=== PATIENT | male | born 1940 | race Caucasian/White ===

== ENCOUNTER 2022-04-16 09:52 | Outpatient (CLI) | payer MEDICARE, BC, SELFPAY ==
--- NOTE | 2022-04-16 11:00 | CRLHL7_ITS ---
For Patients: As a result of the Century Cures Act, medical imaging exams and procedure reports are released immediately into your electronic medical record. You may view this report before your referring provider. If you have questions, please contact your health care provider. Indication: PRIMARY MALIGNANT NEOPLASM OF THE PROSTATE Technique: Postcontrast CT abdomen and pelvis. Oral water. 98 cc Isovue 370 intravenous contrast. Please note that all CT scans at this facility use dose modulation, iterative reconstruction, and/or weight-based dosing when appropriate to reduce radiation dose to as low as reasonably achievable. Comparison: None Findings: There is a nodule associated with the minor fissure measuring 7 millimeters, considered benign. Fibrotic changes are present within both lung bases including thickening of the interlobular septa in both lower lobes in a peripheral distribution extending to the lingula. No pleural effusion. No free intraperitoneal air. The liver is normal without suspicious lesion. Normal gallbladder. No calcified gallstones. No biliary obstruction. The pancreas is normal. Normal spleen. Normal adrenal glands. No suspicious renal lesion. There is a simple cyst upper pole right kidney measuring 3.5 cm. A lobular cystic lesion arises from the upper pole of the left kidney measuring 4.4 cm. Thin septations are present which may be calcified. No hydronephrosis. Dense vascular calcifications. Normal adrenal glands. No retroperitoneal adenopathy. No mesenteric, pelvic or inguinal adenopathy. The prostate is heterogeneous. Normal bladder. No bowel obstruction or free fluid. Extensive chronic sigmoid diverticulosis. Numerous diverticula noted throughout the colon particularly the sigmoid colon with associated sigmoid colon wall thickening. Postop changes of right inguinal hernia repair. No fluid collection or abscess. Degenerative facet arthropathy lower lumbar spine. Grade 1 degenerative spondylolisthesis of L5 on S1. Degenerative joint disease of both hips. Impression: No evidence of metastatic disease. 4.4 cm Bosniak 2 cyst upper pole left kidney. Bosniak 1 cyst upper pole right kidney measuring 3.5 cm. 7 millimeter benign pleural base nodule on the right. Bibasilar fibrosis, left greater than right. Please note that all CT scans at this facility use dose modulation, iterative reconstruction, and/or weight-based dosing when appropriate to reduce radiation dose to as low as reasonably achievable. Dictated by Arnel Noyola MD @ 04/16/2022 12:20:21 PM (Electronically Signed)
== END 2022-04-16 09:53 | disposition home or self-care (01) ==
LOC: CT 10:01
PROVIDERS: PCP Family Medicine; Visit Provider Nurse Practitioner
DX: C61 Malignant neoplasm of prostate (principal); N28.1 Cyst of kidney, acquired; R91.1 Solitary pulmonary nodule
CPT/HCPCS: 74177; Q9967

== ENCOUNTER 2022-05-22 13:45 | Outpatient (CLI) | payer MEDICARE, BC, SELFPAY | END 2022-05-22 13:46 | disposition home or self-care (01) | LOC: MRI 13:46 | PROVIDERS: PCP Family Medicine; Visit Provider Internal Medicine | DX: C61 Malignant neoplasm of prostate (principal) | CPT/HCPCS: 72195 ==

== ENCOUNTER 2022-11-06 13:15 | Outpatient (RCR) | payer MEDICARE, BC, SELFPAY ==
--- NOTE | 2022-05-08 12:18 | ONC.NURNOTE ---
DX: Prostate cancer
--- NOTE | 2022-05-09 10:52 | URNOTE ---
Request received for authorization for Leuprolide ([id number]). Prior Authorization is not required as services are based on medical necessity and follow Medicare guidelines.
[2022-05-10 13:02] VITALS: BP 146/74; PULSE 83; RESP 16; TEMP 36.4; O2SAT 98
[2022-05-10] MEDS: LEUPROLIDE ACETATE 22.5 MG (SQ) SYRINGE SUBCUT (13:52)
[2022-08-03 11:30] VITALS: BP 146/81; PULSE 72; RESP 16; TEMP 36.1; O2SAT 97
[2022-08-03] MEDS: LEUPROLIDE ACETATE 22.5 MG (SQ) SYRINGE SUBCUT (11:48)
[2022-08-03 12:36] LABS: PSA Diagnostic* < 0.06 ng/mL (0.10-4.00)
[2022-08-04 13:42] LABS: Testosterone, Adult Male <3 ng/dL (300-720)
[2022-11-06] MEDS: LEUPROLIDE ACETATE 22.5 MG (SQ) SYRINGE SUBCUT (13:31)
== END 2022-11-06 23:59 | disposition home or self-care (01) ==
LOC: CCIC 13:15
PROVIDERS: PCP Family Medicine; Referring Provider Family Medicine; Visit Provider Internal Medicine
DX: C61 Malignant neoplasm of prostate (principal)
CPT/HCPCS: 36415; 84153; 84403; 96401; J9217

== ENCOUNTER 2023-01-09 15:30 | Outpatient (RCR) | payer MEDICARE, BC, SELFPAY ==
--- NOTE | 2022-10-10 18:29 | PT.OPEX ---
Please sign the attached physical therapy evaluation completed on 10/10/22. Thank you. PT [facility] PT [facility] Outpatient Eval Start: 10/05/22 15:57 Freq: Status: Active Protocol: Document 10/10/22 10:41 TLQ (Rec: 10/10/22 14:00 TLQ Laptop) E-signed By Alma Helms DPT Physical Therapy Outpatient Evaluation Insurance Information Recert Due Date 01/08/23 Insurance Name Medicare B,[employer] Medical Diagnosis Other bursitis of hip, left hip (M70.72) Treating Diagnosis Stiffness of left hip (M25.652 ) Muscle weakness (M62.81) Unsteady on feet (R26.81) Referring MD Lamberto Morales MD Subjective Subjective Nicholas presents to therapy today with not pain but pre- bursitis symptoms in his left hip. States his left hip is feeling stiff. These symptoms have been present for about a month. Symptoms make it difficult to walk, bending forward. Recently fell in his garage, had to call 911 to help get him up. Patient states EMT suggested he get a cane to help with walking, presents today ambulating with a quad-base cane, states his feels like his walking has improved. Denies having any additional falls in the past 6 months. Patient would like to be able to walk up to a mile every day. X-rays taken at [facility] on 09/19/22 with the following impression: minimal joint space narrowing over the inferior aspect of the femoral head with minimal osteophytic spurring. No obvious fracture or pathologic lesion. PMHx: depression, prostate cancer, arthritis, R TKA Pain Comments No pain Current Work Status Retired Preferred Name Nicholas Precautions Therapy Limitations/Systems Review Hearing Objective Other/Pertinent Objective Hip ROM: limited in IR on L Hip strength: flexion L 4-, R 4 extension L 4, R 4 abduction 4- B adduction 4 B internal rotation L 4, R 4 external rotation L 4, R 4 Knee strength: flexion L 4, R 4 extension L 4+, R 4+ TTP: L greater trochanter, L glute med/min Joint mobility: hypomobile on L 5xSTS: 14 seconds, use of 2 arms on chair TU seconds with use of quad cane Gait: shuffle gait, decreased stride on L, use of quad cane in L hand Special tests: JASPREET (+) for mobility restrictions on L LE distraction (+) response Functional Test Performed & Score 2 minute walk test not completed due to time constraints Assessment Assessment/Impression Patient is an 82 year old male who presents to physical therapy today with primary concerns of stiffness in his left hip. Presence of great trochanteric pain on left with palpation of greater trochanter and glute medius/ minimus. At this time patient does not have hip pain during activity. Stiffness observed in left hip with PROM and in JASPREET position, patient had a positive response to long-axis distraction of the left lower extremity. General muscle weakness present in bilateral hips with manual muscle testing. Patient demonstrating functional weakness while completing 5xSTS, unable to complete without use of upper extremities. Patient reports a recent fall and has since began using a quad base cane for ambulation, he presents to today's evaluation using the cane in his left hand. Observed to have decreased stance on his left lower extremity, shuffle gait when not using cane. Concerns regarding balance due to recent fall and time needed to complete Timed Up and Go. Suspect difficulty with endurance due to patient reports of fatiguing on walks with his , unable to assess 2 minute walk test today due to time constraints, will assess at upcoming visit . Based on examination findings, patient will benefit from skilled interventions to increase strength, balance, and endurance to meet his personal and physical therapy goals. Primary Functional Limitations muscle weakness, recent fall, unsteady gait, stiffness of left hip Plan of Care Rehabilitation Potential Good Physical Therapy Goals In 3-4 visits: - Patient will complete 5 transitional reps from sit<> stand without use of his upper extremities for increased functional lower extremity strength. - Patient will tolerate walking up to 1/4 mile with use of LRD to participate in physical activities outdoors with his . - Patient will adhere to HEP to continue progression of strength and conditioning. In 8-10 visits: - Patient will demonstrate ability to complete floor transfer in order to safely work in his garden. - Patient will complete TUG with use of LRD in <13.5 seconds to decrease risk of falling while navigating their home environments. - Patient will complete 5xSTS in <12 seconds for decreased energy expenditure during transitional movements. - Patient will tolerate walking up to 1 mile with use of LRD. Treatment Plan/Direct Interventions Gait Training,Ice/Cold/ Vasopneumatic,Joint Mobilization,Manual Therapy, Neuromuscular Re-ed,Self-Care/ Home Management,Therapeutic Activities,Therapeutic Exercises Frequency/Duration 1x/week for 8-10 weeks Patient Will Be Discharged From Therapy Completion of LTG(s),Skills Plateau,Independent w/HEP, Independently Progressing Evaluation Billing Untimed Code Treatment Minutes 25 Complexity Low Certification Information Initial Certification Date 10/10/22 Ending Certification Date 01/08/23 Provider Signature Shows Agreement With POC & Medical Necessity Physician Signature & Date Requested Please Sign/Date Here Physician Comment/Change : Physician NPI Number #
== END 2023-01-23 11:20 | disposition home or self-care (01) ==
PROVIDERS: PCP Family Medicine; Visit Provider Orthopaedic Surgery
DX: M70.72 Other bursitis of hip, left hip (principal); M25.652 Stiffness of left hip, not elsewhere classified; M62.81 Muscle weakness (generalized); R26.81 Unsteadiness on feet; Z51.89 Encounter for other specified aftercare
CPT/HCPCS: 97110; 97112; 97140; 97161; 97530

== ENCOUNTER 2023-01-27 14:05 | Outpatient (CLI) | payer MEDICARE, BC, SELFPAY | END 2023-01-27 14:06 | disposition home or self-care (01) | LOC: AMB 02-04 06:19 | PROVIDERS: PCP Family Medicine; Visit Provider Emergency Medicine Emergency Medical Services | DX: S09.90XA Unspecified injury of head, initial encounter (principal); W10.8XXA Fall (on) (from) other stairs and steps, initial encounter; Y92.009 Unspecified place in unspecified non-institutional (private) residence as the place of occurrence of the external cause | CPT/HCPCS: A0425; A0429 ==

== ENCOUNTER 2023-01-27 15:03 | Emergency (ER) | payer MEDICARE, BC, SELFPAY ==
[2023-01-27 15:07] VITALS: BP 182/76; PULSE 72; RESP 18; TEMP 36.2; O2SAT 98; BMI 29.1
--- NOTE | 2023-01-27 15:12 | ED_ITS ---
HPI - Fall General Time Seen by Provider: 15:12 Date Seen: 01/27/23 Chief Complaint: Fall/Minor Trauma Stated Complaint: Fall, head laceration Time Seen by Provider: 01/27/23 15:07 Source: patient, EMS and RN notes reviewed Mode of arrival: EMS Limitations: no limitations History of Present Illness HPI Narrative: Patient is an 82-year-old male brought in by EMS and accompanied by his after a fall at home. He was downstairs watching the [employer] game. They have occurred staircase going back up. He has fallen in the past before, has gait issues and possibly some orthostatic blood pressure changes per his . 9 years ago she reports a fall with a brain bleed requiring transfer to [place]. He is not any blood thinners. He denies any significant headache, no visual changes. He can feel some localized pain on the scalp where there is reportedly a laceration. EMS did bring him in in a cervical collar and have him in a turban to suppress bleeding. He admits that he had a little half glass of red wine will watching the [employer] game. He was going back up his curve stairs which he uses his cane in the left hand and then he hangs on the banister with his right hand. He unfortunately was carrying a plate up in his right hand and lost his balance going up the stairs, happened on the 1st step. He fell backwards and hit the top of his head on a bookcase. There was no loss of consciousness, denies any pain anywhere. He is not having pain in his neck, no pain in any of his extremities, no chest pain, no abdominal pain. Denies any difficulty breathing no palpitations or irregular heartbeat. His heard him fall in attended to him right away. complaint: fall Related Data Home Medications Medication Instructions Recorded Confirmed atorvastatin 20 mg tablet 20 mg PO DAILY 09/19/22 11/06/22 finasteride 5 mg tablet 5 mg PO QAM 09/19/22 11/06/22 lisinopril 20 mg tablet 20 mg PO DAILY 09/19/22 11/06/22 trospium 20 mg tablet 20 mg PO Q12H 09/19/22 11/06/22 losartan 50 mg tablet 50 mg PO DAILY 11/06/22 11/06/22 multivitamin 1 tab PO DAILY 11/06/22 11/06/22 sertraline 50 mg tablet 50 mg PO QAM 11/06/22 11/06/22 Allergies Allergy/AdvReac Type Severity Reaction Status Date / Time No Known Drug Allergies Allergy Verified 01/27/23 15:07 Review of Systems Status of ROS: Reports: 6 or more systems reviewed and unremarkable except as noted in History and below [facility] Surgical History 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) ?Z96.651 - Presence of right artificial knee joint (ICD-10) Social History Smoking Status: Never smoker How often do you have a drink containing alcohol: 4 or more times a week How many standard drinks containing alcohol do you have on a typical day: 1 or 2 How often do you have six or more drinks on one occasion: Never AUDIT-C Alcohol total score: 4 Non-prescribed substance use: denies use Exam Const: Vital Signs, click to edit/add: Vital Signs - 24 hr 01/27/23 15:07 01/27/23 15:31 01/27/23 15:46 Temperature 97.1 F L Pulse Rate [Pulse Oximeter] 72 69 Respiratory Rate 18 Blood Pressure [Ri ght Upper Arm] 182/76 H Pulse Oximetry 98 97 98 Oxygen Delivery Me thod Room Air Room Air Pleasant 82-year-old male with bandaging around his head, can see some red blood seeping into the bandages but the area is not growing while I am talking to him. He has a cervical collar on. He is alert, interactive, answering questions, appropriate, speech is normal. GCS is assessed in his 15/15. At this time this wound does not appear to be actively bleeding to the bandaging. Pupils are equal round, extraocular muscles intact, sclera clear. Face is atraumatic. No drainage from the ears or nares noted. C-collar was opened, he has no midline tenderness, no paraspinous tenderness, does not complain of any pain with gentle range of motion. There are no neck masses, no cervical adenopathy, no thyromegaly masses or nodules. Nontender over the clavicles and shoulders, lungs are clear with good aeration throughout. He is not tachypneic his speech is normal. CV regular rate and rhythm no murmur, normal S1 and S2. Abdomen soft nontender no rebound or guarding organomegaly. Pelvis is stable, no pain over hips or lower extremities. Arms without any focal deficit, full range of motion. No open wounds noted on his arms. The dressing was taken down on the top of his head, has a slightly jagged about 10 cm laceration on the right top of his occipital/parietal scalp. At this time there is no active bleeding. It does look like it is fully through the skin. Documenting provider has reviewed patient's vital signs: yes Course Course ED Course: Patient sustained a fall. He states he had just a small amount of alcohol and does not feel intoxicated at all. He is giving me a mechanism for gait imbalance with caring a plate going upstairs taking out 1 of his usual mechanisms with holding onto the railing. Will get basic lab work, monitor him on pulse oximetry. We will obtain head CT, cervical spine CT. Nursing staff will check on his tetanus status. Reevaluation(s) Time of Reevaluation #1: 15:38 Reevaluation #1: Wound was anesthetized locally with 10 mL of 1% lidocaine with epinephrine. No active bleeding at this time. Plan is for stapling of this wound, have ordered head CT and cervical spine CT. Will await this imaging to be done 1st before a stable, again no active bleeding at this time. Time of Reevaluation #2: 16:52 Reevaluation #2: Nursing staff did clean the wound. There was still blanching around the edges. I was able to close the laceration on his scalp using 15 roberto. He tolerated this well. Just along the posterior aspect of the wound, did feel 1 stable going in but otherwise there was good anesthesia. No active bleeding. We did review his last tetanus was 01/05/2011. He does agree to have this updated. Did review with his that I did look back in the records. He was transferred in June of 2014 after a fall with seizure, blood was noted in his left ear. She notes he was transferred to [place], does not remember if he actually had a skull fracture or not. He has not been maintained on anti seizure medicines from what they are telling me. We are awaiting the CT images to be read. He remains hemodynamically stable, likely will discharge to home if the images are negative for acute traumatic change. Time of Reevaluation #3: 17:16 Reevaluation #3: Reviewed with patient that there is no concerning findings on CT imaging of head or neck. The last staple on his scalp is oozing just a little bit, pressure certainly did slow it. He will need tetanus updated and will place pressure dressing back on scalp for overnight. Vital Signs Vital signs: Initial Vital Signs Temperature 97.1 F L 01/27/23 15:07 Temperature Source Temporal Artery Scan 01/27/23 15:07 Pulse Rate 72 01/27/23 15:07 Respiratory Rate 18 01/27/23 15:07 Blood Pressure 182/76 H 01/27/23 15:07 Blood Pressure Mean 111 H 01/27/23 15:07 Blood Pressure Position Sitting 01/27/23 15:07 Pulse Oximetry 98 01/27/23 15:07 Oxygen Delivery Method Room Air 01/27/23 15:07 Vital Signs Temperature 97.1 F L 01/27/23 15:07 Pulse Rate 72 01/27/23 15:07 Respiratory Rate 18 01/27/23 15:07 Blood Pressure 182/76 H 01/27/23 15:07 Pulse Oximetry 98 01/27/23 15:07 Oxygen Delivery Method Room Air 01/27/23 15:07 Temperature 97.1 F L 01/27/23 15:07 Pulse Rate 69 01/27/23 15:46 Respiratory Rate 18 01/27/23 15:07 Blood Pressure 182/76 H 01/27/23 15:07 Pulse Oximetry 98 01/27/23 15:46 Oxygen Delivery Method Room Air 01/27/23 15:46 MDM - Fall Lab Data Attestation: I reviewed the patient's lab results. Labs: Lab Results 01/27/23 Range/Units 15:32 WBC 6.17 (4.50-11.00) K/uL RBC 3.38 L (4.30-5.90) m/uL Hgb 11.3 L (13.5-17.5) gm/dL Hct 34.0 L (37.0-53.0) % MCV 101 H (80-100) fL MCH 33 (26-34) pg MCHC 33 (32-36) gm/dL RDW Coeff of Ramirez 13.8 (11.5-15.5) % Plt Count 165 (140-440) K/uL Neut % (Auto) 80.6 H (42.0-72.0) % Lymph % (Auto) 6.8 L (20-44) % Gallia % (Auto) 9.1 (0.0-11.0) % Eos % (Auto) 3.2 (0.0-7.0) % Baso % (Auto) 0.0 (0.0-3.0) % Neut # (Auto) 5.00 (1.7-7.0) K/uL Lymph # (Auto) 0.40 L (0.90-2.90) K/uL Gallia # (Auto) 0.60 (0.00-0.90) K/UL Eos # (Auto) 0.20 (0.00-0.50) K/uL Baso # (Auto) 0.00 (0.00-0.30) K/uL Abs Immat Gran (auto) 0.02 (0.00-0.30) K/uL Imm/Tot Granulo (auto) 0.3 % Sodium 138 (135-149) mmol/L Potassium 4.4 (3.6-5.1) mmol/L Chloride 102 (96-114) mmol/L Carbon Dioxide 30 (20-32) mmol/L Anion Gap 6 L (7-15) mEq/L BUN 21 (7-30) mg/dL Creatinine 0.8 (0.5-1.5) mg/dL Estimated Creat Clear 56.95 Estimated GFR 88 ml/min Glucose 102 (60-115) mg/dL Lactate 1.0 (0.5-1.9) mmol/L Calcium 9.6 (8.4-10.6) mg/dL Total Bilirubin 0.6 (0.1-1.5) mg/dL AST 29 (12-35) U/L ALT 20 (4-50) U/L Alkaline Phosphatase 69 (40-150) U/L Total Protein 7.1 (6.0-8.3) g/dL Albumin 3.9 (3.3-5.0) g/dL Ethyl Alcohol < 0.01 L (0.01-0.03) % Imaging Data CT scan - head: Attestation: I have reviewed the pertinent imaging results. Radiologist's impression: Patient: NERI TAI Facility:?[facility] Patient ID:?[id number] Site Patient ID:?[id number]. Site :?[id number] Study:?CT Head WO-01/27/2023 4:02:55 PM Ordering Physician:Aditi Hendricks Final Report: INDICATION: Trauma. Comparison: None. TECHNIQUE: CT head without intravenous contrast; coronal and sagittal reformats. FINDINGS: No evidence of intracranial hemorrhage. No mass lesions. No evidence of shift of the midline structures. Dilated ventricles and prominent cerebral sulci secondary to cerebral atrophy. Significant atrophy both frontal lobes. Calvarium is unremarkable. Hematoma with laceration over the vertex to the right of the midline. IMPRESSION: 1. Cerebral atrophy. 2. No intracranial hemorrhage. Please note that all CT scans at this facility use dose modulation, iterative reconstruction, and/or weight-based dosing when appropriate to reduce radiation dose to as low as reasonably achievable. Dictated by Yuliana Banerjee MD @ 01/27/2023 5:00:24 PM (Electronic Signature) CT cervical spine: Attestation: I have reviewed the pertinent imaging results. Radiologist's impression: Patient: NERI TAI Facility:?[facility] Patient ID:?[id number] Site Patient ID:?[id number]. Site :?[id number] Study:?CT Spine Cervical WO-01/27/2023 4:03:16 PM Ordering Physician:?Primitivo Hendricks Final Report: INDICATION: Trauma; neck pain. COMPARISON: None. TECHNIQUE: CT cervical spine without intravenous contrast; coronal and sagittal reformats. FINDINGS: No evidence of acute fracture or dislocation. C1-C2 articulation is unremarkable. The intervertebral disc spaces are well preserved fail to reveal any abnormalities. Lung apices are normal. IMPRESSION: Negative CT cervical spine. Please note that all CT scans at this facility use dose modulation, iterative reconstruction, and/or weight-based dosing when appropriate to reduce radiation dose to as low as reasonably achievable. Dictated by Yuliana Banerjee MD @ 01/27/2023 5:02:58 PM (Electronic Signature) Critical Care Time Critical Care Time Critical Care Time: No Discharge Plan Discharge Clinical Impression: Fall, Laceration of scalp Patient Disposition: Home, Self-Care Condition: Stable Instructions: Fall Prevention for Older Adults (ED), Staple Care (ED) Additional Instructions: You need to schedule a clinic followup in about 10 days to have this wound assessed for staple removal. You should also talk to your provider at that visit about gait safety, consider referral to physical therapy. I do not recommend that you try to carry anything with ambulating, particularly going up or down stairs. You need to be very careful of alcohol intake as that can make your gait more at risk for falls. You may shower or bathe as you normally would, be careful to not disrupt the roberto on your scalp. Activity Level: Activity as Tolerated Prescriptions: No Action lisinopril 20 mg tablet 20 mg PO DAILY atorvastatin 20 mg tablet 20 mg PO DAILY finasteride 5 mg tablet 5 mg PO QAM trospium 20 mg tablet 20 mg PO Q12H multivitamin Tablet 1 tab PO DAILY losartan 50 mg tablet 50 mg PO DAILY sertraline 50 mg tablet 50 mg PO QAM Follow Up/Referrals: Ky Negron MD [Primary Care Provider] - Stand Alone Forms: [employer] Info Instructions
--- NOTE | 2023-01-27 15:22 | CRLHL7_ITS ---
For Patients: As a result of the Century Cures Act, medical imaging exams and procedure reports are released immediately into your electronic medical record. You may view this report before your referring provider. If you have questions, please contact your health care provider. INDICATION: Trauma. Comparison: None. TECHNIQUE: CT head without intravenous contrast; coronal and sagittal reformats. FINDINGS: No evidence of intracranial hemorrhage. No mass lesions. No evidence of shift of the midline structures. Dilated ventricles and prominent cerebral sulci secondary to cerebral atrophy. Significant atrophy both frontal lobes. Calvarium is unremarkable. Hematoma with laceration over the vertex to the right of the midline. IMPRESSION: 1. Cerebral atrophy. 2. No intracranial hemorrhage. Please note that all CT scans at this facility use dose modulation, iterative reconstruction, and/or weight-based dosing when appropriate to reduce radiation dose to as low as reasonably achievable. Dictated by Yuliana Banerjee MD @ 01/27/2023 5:00:24 PM (Electronically Signed)
--- NOTE | 2023-01-27 15:23 | CRLHL7_ITS ---
For Patients: As a result of the Century Cures Act, medical imaging exams and procedure reports are released immediately into your electronic medical record. You may view this report before your referring provider. If you have questions, please contact your health care provider. INDICATION: Trauma; neck pain. COMPARISON: None. TECHNIQUE: CT cervical spine without intravenous contrast; coronal and sagittal reformats. FINDINGS: No evidence of acute fracture or dislocation. C1-C2 articulation is unremarkable. The intervertebral disc spaces are well preserved fail to reveal any abnormalities. Lung apices are normal. IMPRESSION: Negative CT cervical spine. Please note that all CT scans at this facility use dose modulation, iterative reconstruction, and/or weight-based dosing when appropriate to reduce radiation dose to as low as reasonably achievable. Dictated by Yuliana Banerjee MD @ 01/27/2023 5:02:58 PM (Electronically Signed)
[2023-01-27 15:31] VITALS: O2SAT 97
[2023-01-27 15:41] LABS: Eosinophils Percent Auto 3.2 % (0.0-7.0); Hemoglobin* 11.3 gm/dL (13.5-17.5); Immature Granulocytes Abs Auto 0.02 K/uL (0.00-0.30); Immature Granulocytes Pct Auto 0.3 %; Lymphocytes Percent Auto 6.8 % (20-44); Mean Corpuscular HGB Conc 33 gm/dL (32-36); Mean Corpuscular Hemoglobin 33 pg (26-34); Mean Corpuscular Volume 101 fL (80-100); Monocytes Percent Auto 9.1 % (0.0-11.0); Neutrophils Percent Auto 80.6 % (42.0-72.0); Platelet Count* 165 K/uL (140-440); RDW Coefficient of Variation % 13.8 % (11.5-15.5); Red Blood Count 3.38 m/uL (4.30-5.90); White Blood Count* 6.17 K/uL (4.50-11.00)
[2023-01-27 15:44] LABS: Slide Review Reflex No
[2023-01-27 15:46] VITALS: PULSE 69; O2SAT 98
[2023-01-27 15:55] LABS: Albumin* 3.9 g/dL (3.3-5.0); Chloride* 102 mmol/L (96-114)
[2023-01-27 15:56] LABS: Potassium* 4.4 mmol/L (3.6-5.1); Sodium* 138 mmol/L (135-149)
[2023-01-27 15:58] LABS: Alkaline Phosphatase* 69 U/L (40-150); Anion Gap 6 mEq/L (7-15); Aspartate Amino Transferase* 29 U/L (12-35); Bilirubin Total* 0.6 mg/dL (0.1-1.5); Blood Urea Nitrogen* 21 mg/dL (7-30); Carbon Dioxide* 30 mmol/L (20-32); Creatinine* 0.8 mg/dL (0.5-1.5); Est. Creatinine Clearance* 56.95; Estimated Glomerular Filt Rate 88 ml/min; Glucose* 102 mg/dL (60-115); Total Protein* 7.1 g/dL (6.0-8.3)
[2023-01-27 15:59] LABS: Alanine Aminotransferase* 20 U/L (4-50); Calcium* 9.6 mg/dL (8.4-10.6)
[2023-01-27 16:02] LABS: Ethanol* < 0.01 % (0.01-0.03)
--- NOTE | 2023-01-27 16:32 | ED.NURSE ---
Pt ambulated to and from the restroom with walker. Standby assist.
--- NOTE | 2023-01-27 17:00 | ED.NURSE ---
Pt head wound cleaned with wound cleanser spray and moist gauze.
[2023-01-27] MEDS: TETANUS/DIPHTH/PERTUSSIS 0.5 ML SYRINGE IM (17:34)
--- NOTE | 2023-01-27 17:45 | ED.NURSE ---
Pt head wound bandaged with telfa and gauze rolls.
[2023-01-27 18:10] VITALS: BP 175/81; PULSE 75; RESP 16; O2SAT 98
== END 2023-01-27 18:13 | disposition home or self-care (01) ==
PROVIDERS: Emergency Provider Family Medicine; PCP Family Medicine
DX: S01.01XA Laceration without foreign body of scalp, initial encounter (principal); W10.9XXA Fall (on) (from) unspecified stairs and steps, initial encounter
CPT/HCPCS: 12004; 36415; 70450; 72125; 80053; 82077; 83605; 85025; 90471; 90715; 94761; 99284

== ENCOUNTER 2023-01-29 14:19 | Outpatient (RCR) | payer MEDICARE, BC, SELFPAY ==
[2023-01-29 14:53] VITALS: BP 135/68; PULSE 68; RESP 16; TEMP 36.4; O2SAT 97
[2023-01-29] MEDS: LEUPROLIDE ACETATE 22.5 MG (SQ) SYRINGE SUBCUT (14:59)
[2023-01-29 16:28] LABS: PSA Diagnostic* < 0.06 ng/mL (0.10-4.00)
== END 2023-07-28 23:59 | disposition home or self-care (01) ==
LOC: CCIC 14:19
PROVIDERS: PCP Family Medicine; Referring Provider Family Medicine; Visit Provider Internal Medicine
DX: C61 Malignant neoplasm of prostate (principal)
CPT/HCPCS: 36415; 84153; 96401; J9217

== ENCOUNTER 2023-05-23 15:15 | Outpatient (RCR) | payer MEDICARE, BC, SELFPAY | END 2023-05-23 16:11 | disposition home or self-care (01) | PROVIDERS: PCP Family Medicine; Visit Provider Podiatrist | DX: R29.898 Other symptoms and signs involving the musculoskeletal system (principal); Z91.81 History of falling; R26.2 Difficulty in walking, not elsewhere classified; M62.81 Muscle weakness (generalized); Z51.89 Encounter for other specified aftercare | CPT/HCPCS: 97110; 97112; 97162 ==

== ENCOUNTER 2023-07-04 11:00 | Outpatient (RCR) | payer MEDICARE, BC, SELFPAY | END 2023-11-01 23:59 | disposition home or self-care (01) | PROVIDERS: PCP Family Medicine; Visit Provider Internal Medicine | DX: C61 Malignant neoplasm of prostate (principal); Z51.89 Encounter for other specified aftercare | CPT/HCPCS: 97110; 97140; 97162 ==

== ENCOUNTER 2023-07-13 14:07 | Outpatient (CLI) | payer MEDICARE, BC, SELFPAY | END 2023-07-13 14:08 | disposition home or self-care (01) | LOC: AMB 07-25 09:46 | PROVIDERS: PCP Family Medicine; Visit Provider Student in an Organized Health Care Education/Training Program | DX: R53.1 Weakness (principal) | CPT/HCPCS: A0425; A0429 ==

== ENCOUNTER 2023-07-13 14:49 | Emergency (ER) | payer MEDICARE, BC, SELFPAY ==
[2023-07-13] VITALS (14 sets, daily range): BP systolic 144–185; BP diastolic 79–90; PULSE 74–89; RESP 18; TEMP 36.7; O2SAT 96–100; BMI 23.1
--- NOTE | 2023-07-13 15:29 | CT_ITS ---
Patient: NERI LUJAN Facility:?[facility] Patient ID:?[id number] Site Patient ID:?[id number]. Site :?[id number] Study:?CT-Head w/o-07/13/2023 4:06:51 PM Ordering Physician:Jaelyn Navarrete Final Report: INDICATION: Frequent falls; history of normal pressure hydrocephalus. COMPARISON: CT head without intravenous contrast 01/27/2023. TECHNIQUE: CT head without intravenous contrast; coronal and sagittal reformats. FINDINGS: No intracranial hemorrhage. No mass lesions. No evidence of shift of the midline structures. Cerebral atrophy. Dilated ventricular system out of proportion to the brain atrophy; rule out normal pressure hydrocephalus. Calvarium is unremarkable. IMPRESSION: 1. Rule out NPH. 2. No acute pathology. Please note that all CT scans at this facility use dose modulation, iterative reconstruction, and/or weight-based dosing when appropriate to reduce radiation dose to as low as reasonably achievable. Dictated by Yuliana Banerjee MD @ 07/13/2023 4:30:21 PM Signed by:?Yuliana Banerjee MD @07/13/2023 4:30:21 PM (Electronic Signature)
[2023-07-13 16:03] LABS: Lactate* 1.1 mmol/L (0.5-1.9)
[2023-07-13 16:06] LABS: Basophils Absolute Auto 0.01 K/uL (0.00-0.30); Basophils Percent Auto 0.1 % (0.0-3.0); Eosinophils Absolute Auto 0.06 K/uL (0.00-0.50); Eosinophils Percent Auto 0.7 % (0.0-7.0); Hematocrit 37.5 % (37.0-53.0); Hemoglobin* 12.4 gm/dL (13.5-17.5); Immature Granulocytes Abs Auto 0.02 K/uL (0.00-0.30); Immature Granulocytes Pct Auto 0.2 %; Lymphocytes Percent Auto 5.2 % (20-44); Mean Corpuscular HGB Conc 33 gm/dL (32-36); Mean Corpuscular Hemoglobin 33 pg (26-34); Mean Corpuscular Volume 100 fL (80-100); Neutrophils Percent Auto 82.8 % (42.0-72.0); Platelet Count* 180 K/uL (140-440); RDW Coefficient of Variation % 14.5 % (11.5-15.5); Red Blood Count 3.74 m/uL (4.30-5.90); White Blood Count* 8.71 K/uL (4.50-11.00)
[2023-07-13 16:22] LABS: Slide Review Reflex No
[2023-07-13 16:27] LABS: Chloride* 100 mmol/L (96-114); Sodium* 135 mmol/L (135-149)
[2023-07-13 16:30] LABS: Anion Gap 10 mEq/L (7-15); Blood Urea Nitrogen* 30 mg/dL (7-30); Carbon Dioxide* 25 mmol/L (20-32); Creatinine* 0.8 mg/dL (0.5-1.5); Est. Creatinine Clearance* 62.84; Estimated Glomerular Filt Rate 88 ml/min
[2023-07-13 16:31] LABS: Calcium* 9.9 mg/dL (8.4-10.6); Glucose* 101 mg/dL (60-115)
[2023-07-13 16:41] LABS: Troponin I* 0.04 ng/mL (0.01-0.04)
[2023-07-13] MEDS: 0.9 % SODIUM CHLORIDE 1000 ml 1,000 ML IV (16:43)
[2023-07-13 16:51] LABS: Appearance Urine Clear (Clear); Bilirubin Urine Negative (Negative); Blood Urine Negative (Negative); Color Urine Yellow (Yellow); Glucose Urine Negative (Negative); Ketones Urine 1+ (Negative); Leukocyte Esterase Urine Negative (Negative); Nitrite Urine Negative (Negative); Protein Urine 2+ (Negative); Urobilinogen Urine 0.2 (0.2-1.0)
[2023-07-13 17:03] LABS: RBC Urine 0-2 (0-2); WBC Urine 0-2 (0-5)
[2023-07-13 17:04] LABS: Hyaline Casts Urine Few (None-Few)
--- NOTE | 2023-07-13 17:48 | ED.GENADULT ---
HPI - General Adult General Date Seen: 07/13/23 Chief complaint: Extremity Pain/Injury, Lower Stated complaint: fall Time Seen by Provider: 07/13/23 15:18 History of Present Illness HPI narrative: This is a pleasant 83-year-old male brought to the ER today from his home by EMS for evaluation after 3 falls over the past 24 hours. History is obtained in part from paramedics, in part from the patient, in part from his . He does have mild memory loss but is generally a good historian, I think. He has a history of prostate cancer that was diagnosed 2 years ago and treated with radiation and hormonal therapy. Now thought to be in remission. Off hormonal treatment for the past few months. notes that he has had trouble with falls beginning last September, about 10 months ago. He had had about 10 falls in total, roughly 1 per month. He had a workup through his primary care provider in [facility] and had an MRI in March that showed abnormally enlarged ventricles, possibly hydrocephalus. This led referred to a referral to a neurologist at [facility]. They saw them a couple of weeks ago. He had a repeat MRI that redemonstrated hydrocephalus. Plan is for him to have an outpatient spinal tap to drain some CSF, which is scheduled for next week However over the past 2-3 weeks he has had a fairly rapid decline in his level of function. He has been more confused than normal. He has been more unsteady. He has had a couple more falls recently. In particular he has had 3 falls in the past 24 hours at home. He is having trouble ambulating with his walker because just too heavy and he is too unsteady to move it. Fortunately with his 3 falls he really did not hit his head or suffer any injuries from the fall. He has no pain. His notes that he is just too weak to get up after a falls and she is not strong him to pick him up. She does not feel like it is safe for him to be at home anymore. This is why they had the ambulance bring him into the ER today. No other symptoms. No fever. No cough. No chest pain. No palpitations. No urinary symptoms. Normal appetite. No weight loss. Normal bowel movements. He does have chronic swelling in both of his legs which is unchanged from baseline. 03/28/23 MRI BRAIN from [facility] IMPRESSION: 1. No acute intracranial abnormality. 2. Moderate enlargement of the supratentorial ventricular system out of proportion to the degree of cerebral sulcal prominence. There is [id number] enlargement of the 4th ventricle. No significant sulcal crowding of the vertex. This constellation of findings can be seen in the setting of chronic communicating hydrocephalus. Normal pressure hydrocephalus could be considered in an appropriate clinical setting. 3. Encephalomalacia and gliosis within the right greater than left anterior frontal lobes, temporal poles, and lateral left temporal lobe, compatible with sequelae of remote trauma. Through [facility] Was seen at [facility] on 06/13/2023 for frequent falls and gait instability. Has gait instability, mild cognitive decline which could be compatible with hydrocephalus. Repeat MRI obtained (results not available at this time). Plan was for outpatient lumbar puncture (which is scheduled for this next week) Related Data Home Medications Medication Instructions Recorded Confirmed atorvastatin 20 mg tablet 20 mg PO DAILY 09/19/22 11/06/22 finasteride 5 mg tablet 5 mg PO QAM 09/19/22 11/06/22 lisinopril 20 mg tablet 20 mg PO DAILY 09/19/22 11/06/22 trospium 20 mg tablet 20 mg PO Q12H 09/19/22 11/06/22 losartan 50 mg tablet 50 mg PO DAILY 11/06/22 11/06/22 multivitamin 1 tab PO DAILY 11/06/22 11/06/22 sertraline 50 mg tablet 50 mg PO QAM 11/06/22 11/06/22 Allergies Allergy/AdvReac Type Severity Reaction Status Date / Time No Known Drug Allergies Allergy Verified 01/29/23 14:56 PFSH PFS Surgical History 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) ?Z96.651 - Presence of right artificial knee joint (ICD-10) Social History Smoking Status: Never smoker How often do you have a drink containing alcohol: 4 or more times a week How many standard drinks containing alcohol do you have on a typical day: 1 or 2 How often do you have six or more drinks on one occasion: Never AUDIT-C Alcohol total score: 4 Non-prescribed substance use: denies use Exam Const: Vital Signs, click to edit/add: Vital Signs - 24 hr 07/13/23 14:57 07/13/23 15:08 07/13/23 15:15 Temperature 98.1 F Pulse Rate 76 89 Pulse Rate [Right Pulse Oximeter] 74 Respiratory Rate 18 Blood Pressure Blood Pressure [Le ft Upper Arm] 144/79 H Pulse Oximetry 97 98 98 Oxygen Delivery Me thod Room Air 07/13/23 15:30 07/13/23 15:45 07/13/23 16:37 Temperature Pulse Rate 82 77 87 Pulse Rate [Right Pulse Oximeter] Respiratory Rate Blood Pressure Blood Pressure [Le ft Upper Arm] Pulse Oximetry 99 97 96 Oxygen Delivery Me thod 07/13/23 16:38 07/13/23 16:41 07/13/23 16:45 Temperature Pulse Rate 83 82 80 Pulse Rate [Right Pulse Oximeter] Respiratory Rate Blood Pressure 185/90 H 185/87 H Blood Pressure [Le ft Upper Arm] Pulse Oximetry 96 97 97 Oxygen Delivery Me thod 07/13/23 17:00 07/13/23 17:15 07/13/23 17:30 Temperature Pulse Rate 74 82 79 Pulse Rate [Right Pulse Oximeter] Respiratory Rate Blood Pressure Blood Pressure [Le ft Upper Arm] Pulse Oximetry 97 100 99 Oxygen Delivery Me thod 07/13/23 17:45 07/13/23 18:00 Temperature Pulse Rate 81 79 Pulse Rate [Right Pulse Oximeter] Respiratory Rate Blood Pressure Blood Pressure [Le ft Upper Arm] Pulse Oximetry 96 98 Oxygen Delivery Me thod Course Vital Signs Vital signs: Initial Vital Signs Temperature 98.1 F 07/13/23 14:57 Temperature Source Temporal Artery Scan 07/13/23 14:57 Pulse Rate 74 07/13/23 14:57 Respiratory Rate 18 07/13/23 14:57 Blood Pressure 144/79 H 07/13/23 14:57 Blood Pressure Mean 100 07/13/23 14:57 Blood Pressure Position Sitting 07/13/23 14:57 Pulse Oximetry 97 07/13/23 14:57 Oxygen Delivery Method Room Air 07/13/23 14:57 Vital Signs Temperature 98.1 F 07/13/23 14:57 Pulse Rate 74 07/13/23 14:57 Respiratory Rate 18 07/13/23 14:57 Blood Pressure 144/79 H 07/13/23 14:57 Pulse Oximetry 97 07/13/23 14:57 Oxygen Delivery Method Room Air 07/13/23 14:57 Temperature 98.1 F 07/13/23 14:57 Pulse Rate 79 07/13/23 18:00 Respiratory Rate 18 07/13/23 14:57 Blood Pressure 185/87 H 07/13/23 16:41 Pulse Oximetry 98 07/13/23 18:00 Oxygen Delivery Method Room Air 07/13/23 14:57 Medications Administered Medications: Discontinued Medications Generic Name Dose Route Start Last Admin Trade Name Chantel PRN Reason Stop Dose Admin Sodium Chloride 1,000 mls @ 1,000 mls/hr 07/13/23 15:30 07/13/23 18:05 0.9 % Sodium Chloride 1000 Ml IV 07/13/23 16:29 Infused .Q1H YASMEEN Infusion Medical Decision Making MDM Narrative Medical decision making narrative: Pleasant 83-year-old male presents to the ER today from his home by EMS. He is accompanied by his . He has been experiencing a falls ongoing for the past year with a substantial decline in his steadiness and gait and multiple falls over the past couple of weeks, and has been particularly unsteady for the past couple of days. No definite new symptoms associated with his new gait unsteadiness. He has been in the process of workup for possible normal pressure hydrocephalus and is already seen neurology at [facility]. He is scheduled to have outpatient lumbar puncture and CSF fluid drainage next week. At this point workup here in the ER including EKG, labs, urinalysis shows no medical or clear infectious cause for his worsening gait instability and frequent falls. Fortunately there is no signs of any serious injuries from the fall so far. No evidence for intracranial injury. He is not having any neck pain to suggest C-spine fracture. No neurologic deficits suggesting spinal cord injury. No evidence for hip or pelvic fracture, intra-abdominal injury, or rib cage or thoracic injury. CT scan does redemonstrate disproportion and dilation of the ventricles suggesting probable normal-pressure hydrocephalus. I suspect that the patient's gait instability and worsening symptoms are probably due to progression of his NPH. He is still in the process of getting this worked up through Neurology at [facility]. Plan will be to get him transferred to [facility] for an inpatient admission because he is too unstable and too high risk to fall if discharged home. Ideally, they can perform the rest of his workup while inpatient [facility] He will be transferred to [facility] by EMS. Lab Data Labs: Lab Results 07/13/23 07/13/23 Range/Units 15:55 16:42 WBC 8.71 (4.50-11.00) K/uL RBC 3.74 L (4.30-5.90) m/uL Hgb 12.4 L (13.5-17.5) gm/dL Hct 37.5 (37.0-53.0) % MCV 100 (80-100) fL MCH 33 (26-34) pg MCHC 33 (32-36) gm/dL RDW Coeff of Ramirez 14.5 (11.5-15.5) % Plt Count 180 (140-440) K/uL Neut % (Auto) 82.8 H (42.0-72.0) % Lymph % (Auto) 5.2 L (20-44) % [place] % (Auto) 11.0 (0.0-11.0) % Eos % (Auto) 0.7 (0.0-7.0) % Baso % (Auto) 0.1 (0.0-3.0) % Neut # (Auto) 7.20 H (1.7-7.0) K/uL Lymph # (Auto) 0.50 L (0.90-2.90) K/uL [place] # (Auto) 1.00 H (0.00-0.90) K/UL Eos # (Auto) 0.06 (0.00-0.50) K/uL Baso # (Auto) 0.01 (0.00-0.30) K/uL Abs Immat Gran (auto) 0.02 (0.00-0.30) K/uL Imm/Tot Granulo (auto) 0.2 % Sodium 135 (135-149) mmol/L Potassium 4.0 (3.6-5.1) mmol/L Chloride 100 (96-114) mmol/L Carbon Dioxide 25 (20-32) mmol/L Anion Gap 10 (7-15) mEq/L BUN 30 (7-30) mg/dL Creatinine 0.8 (0.5-1.5) mg/dL Estimated Creat Clear 62.84 Estimated GFR 88 ml/min Glucose 101 (60-115) mg/dL Lactate 1.1 (0.5-1.9) mmol/L Calcium 9.9 (8.4-10.6) mg/dL Troponin I 0.04 (0.01-0.04) ng/mL Urine Color Yellow (Yellow) Urine Appearance Clear (Clear) Urine pH 6.0 (5.0-8.5) Ur Specific Cope 1.020 (1.000-1.030) Urine Protein 2+ A (Negative) Urine Glucose (UA) Negative (Negative) Urine Ketones 1+ A (Negative) Urine Blood Negative (Negative) Urine Nitrite Negative (Negative) Urine Bilirubin Negative (Negative) Urine Urobilinogen 0.2 (0.2-1.0) Ur Leukocyte Esterase Negative (Negative) Urine RBC 0-2 (0-2) Urine WBC 0-2 (0-5) Ur Squamous Epith Cells None (None-Few) Urine Bacteria None (None) Hyaline Casts Few (None-Few) Imaging Data CT scan - head: Attestation: I have reviewed the pertinent imaging results. Radiologist's impression: FINDINGS: No intracranial hemorrhage. No mass lesions. No evidence of shift of the midline structures. Cerebral atrophy. Dilated ventricular system out of proportion to the brain atrophy; rule out normal pressure hydrocephalus. Calvarium is unremarkable. IMPRESSION: 1. Rule out NPH. 2. No acute pathology. ECG Data Attestation: I personally reviewed and interpreted this ECG as follows: Interpretation: Normal sinus rhythm with occasional PVCs and PACs rate 81 DE here 164 QRS axis normal axis. No pathologic Q-waves. ST segment/T wave: No ST segment elevation or depression. QTc: 455 Discharge Plan Discharge Clinical Impression: Normal pressure hydrocephalus, Falls Prescriptions: No Action lisinopril 20 mg tablet 20 mg PO DAILY atorvastatin 20 mg tablet 20 mg PO DAILY finasteride 5 mg tablet 5 mg PO QAM trospium 20 mg tablet 20 mg PO Q12H multivitamin Tablet 1 tab PO DAILY losartan 50 mg tablet 50 mg PO DAILY sertraline 50 mg tablet 50 mg PO QAM Follow Up/Referrals: Ky Negron MD [Primary Care Provider] -
--- NOTE | 2023-07-13 20:37 | ED.NURSE ---
Patient accepted at [facility] room 296. Dispatch called.
--- NOTE | 2023-07-13 20:45 | ED.NURSE ---
Report given to [phone] MANUELITO Choi.
== END 2023-07-13 21:07 | disposition short-term general hospital (02) ==
PROVIDERS: Emergency Provider Emergency Medicine; PCP Family Medicine
DX: G91.9 Hydrocephalus, unspecified (principal); Z91.81 History of falling
CPT/HCPCS: 36415; 70450; 80048; 81001; 83605; 84484; 85025; 87040; 93005; 96360; 99284; 99285; J7030

== ENCOUNTER 2023-07-13 20:55 | Outpatient (CLI) | payer MEDICARE, BC, SELFPAY | END 2023-07-13 20:56 | disposition home or self-care (01) | LOC: AMB 07-26 16:19 | PROVIDERS: PCP Family Medicine; Visit Provider Emergency Medicine | DX: G91.2 (Idiopathic) normal pressure hydrocephalus (principal); R42 Dizziness and giddiness | CPT/HCPCS: A0425; A0428 ==

== ENCOUNTER 2023-08-01 19:50 | Outpatient (CLI) | payer MEDICARE, BC, SELFPAY | END 2023-08-01 19:51 | disposition home or self-care (01) | LOC: AMB 08-04 05:15 | PROVIDERS: PCP Family Medicine; Visit Provider Emergency Medicine | DX: R53.1 Weakness (principal) | CPT/HCPCS: A0425; A0429 ==

== ENCOUNTER 2023-08-01 20:45 | Inpatient (IN) | payer MEDICARE, BC, SELFPAY ==
[2023-08-01 20:49] VITALS: BP 138/53; PULSE 80; TEMP 36.2; O2SAT 97; BMI 29.2
--- NOTE | 2023-08-01 20:58 | ED.GENADULT ---
HPI - General Adult General Chief complaint: Fall/Minor Trauma Stated complaint: fall Time Seen by Provider: 08/01/23 20:48 History of Present Illness HPI narrative: This is an 83-year-old gentleman was brought to the ER tonight by EMS from his home after multiple falls. EMS reports that he was weak enough on study enough that he could not get himself off the floor of his bathroom unassisted tonight. He did not want to come in, but his was insistent and EMS agree that he was not safe in his home environment. Presentation is similar to when I saw him a few weeks ago for multiple falls. He has a history of prostate cancer (treated years ago) as well as a recent possible diagnosis of normal pressure hydrocephalus. At the time I saw him a few weeks ago he had been in an outpatient process with the neurology team at [facility] to evaluate for normal pressure hydrocephalus and they were considering testing him to see if he would benefit from a shunt. Given multiple falls leading up to his last ER visit, we made arrangements to get him transferred to [facility] for admission and neuro workup/consult with Neurosurgery. My workup in the ER on 07/13 showed WBC 8.7, hemoglobin 12.4, platelet count 180 Sodium 135, potassium 4, chloride 100, bicarb 25, anion gap 10, BUN 30, creatinine 0.8, glucose 101 Venous lactic 1.1 Troponin 0.04 EKG shows sinus rhythm Urinalysis was normal CT head FINDINGS: No intracranial hemorrhage. No mass lesions. No evidence of shift of the midline structures. Cerebral atrophy. Dilated ventricular system out of proportion to the brain atrophy; rule out normal pressure hydrocephalus. Calvarium is unremarkable. IMPRESSION: 1. Rule out NPH. 2. No acute pathology. His reports that he did spend a couple of days in the hospital at [place]. He had a trial lumbar puncture with pre and post video monitoring. His neurologist said that they did not think there was significant improvement after lumbar puncture so they did not proceed with an inpatient VIDEO SURVEILLANCE TECHNICIAN shunt. He is set up to see a neurosurgeon on September 16 and to have a PET scan for further evaluation. He was discharged home a little over 2 weeks ago. He has been needing extra assistance from his and from his neighbor, Jose in from his kids. He had 1 fall the store last week. Today he has had 2 falls at home. No other new symptoms today. No chest pain. No palpitations. No fever. No new cough. No shortness of breath. No new headache. No blurry vision. No focal numbness or weakness. No urinary symptoms. No diarrhea. He had 2 falls this evening and the 2nd 1 was in the bathroom and he was very unsteady. No symptoms triggered it. No chest pain. No palpitations. No headache. He did not trip. He was unable to get up after the 1st fall so his called their neighbor, Jose, who helped him up. After the 2nd fall He was too weak to get himself up. He did not want to come to the hospital but his called 911. Paramedics agree that he was too unsteady and too weak to get off the floor so they did bring him in. They will file a vulnerable adult report. is also concerned about his weakness and she does not when him to go home. If he can go to [place] to get a shunt, she would want him to get a assisted living or detention Related Data Home Medications Medication Instructions Recorded Confirmed atorvastatin 20 mg tablet 20 mg PO DAILY 09/19/22 11/06/22 finasteride 5 mg tablet 5 mg PO QAM 09/19/22 11/06/22 lisinopril 20 mg tablet 20 mg PO DAILY 09/19/22 11/06/22 trospium 20 mg tablet 20 mg PO Q12H 09/19/22 11/06/22 losartan 50 mg tablet 50 mg PO DAILY 11/06/22 11/06/22 multivitamin 1 tab PO DAILY 11/06/22 11/06/22 sertraline 50 mg tablet 50 mg PO QAM 11/06/22 11/06/22 Allergies Allergy/AdvReac Type Severity Reaction Status Date / Time No Known Drug Allergies Allergy Verified 01/29/23 14:56 [facility] Medical History (Updated 08/01/23 @ 23:08 by Lissett Padilla MD) Closed head injury ?S09.90XA - Unspecified injury of head, initial encounter (ICD-10) Surgical History 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 Alert. Conversant. Non toxic. Polite. He and his remember me from before. HENT: Head: Atraumatic. Nose: Nose normal. Mouth/Throat: Oral mucosa is clear and moist. no trismus. Pharynx normal. Tonsils symmetric. No tonsillar enlargement, erythema, or exudate. Eyes: Conjunctivae normal. EOM normal. Pupils equal, round, and reactive to light. No scleral icterus. Neck: Normal range of motion. Neck supple. No tracheal deviation present. Cardiovascular: Normal rate, regular rhythm. No gallop. No friction rub. No murmur heard. Symmetric radial artery pulses Pulmonary/Chest: Effort normal. No stridor. No respiratory distress. No wheezes. No rales. No rhonchi . No tenderness. Abdominal: Soft. Bowel sounds normal. No distension. No mass. No tenderness. No rebound. No guarding. Musculoskeletal: RUE: Normal range of motion. No tenderness. No deformity LUE: Normal range of motion. No tenderness. No deformity RLE: Normal range of motion. No edema. No tenderness. No deformity LLE: Normal range of motion. No edema. No tenderness. No deformity Lymph: No cervical adenopathy. Neurological: Mental status normal. Attention normal. Alert and oriented x3. GCS 15. Memory seems somewhat off and a little bit slow. Speech fluent. Cognition seem slow. provides most of his history per. Cranial Nerves intact II-XII except I did not formally test gag or visual acuity. EOMI. Palate elevates symmetrically and tongue protrudes in the midline. Strength: He does have 5/5 strength and is able to hold all 4 extremities up against gravity but he does have weakness in his lately. He has only had a hold up his feet for about 1 or 2 seconds poor they drip back to the bed. He is not able to do heel garcia testing because of his weakness. Gait not assessable due to weakness and instability. Sensation intact to light touch in both upper extremities (C4-T1) Sensation intact to light touch in Both lower extremities (L4-S1). Finger to nose and coordination normal. Skin: Skin is warm and dry. No rash noted. No pallor. Normal capillary refill. Psychiatric: Normal mood. Normal affect. Const: Vital Signs, click to edit/add: Vital Signs - 24 hr 08/01/23 20:49 Temperature 97.2 F L Pulse Rate [Pulse Oximeter] 80 Blood Pressure [Ri t Upper Arm] 138/53 L Pulse Oximetry 97 Oxygen Delivery Me thod Room Air Course Vital Signs Vital signs: Initial Vital Signs Temperature 97.2 F L 08/01/23 20:49 Temperature Source Temporal Artery Scan 08/01/23 20:49 Pulse Rate 80 08/01/23 20:49 Blood Pressure 138/53 L 08/01/23 20:49 Blood Pressure Mean 81 08/01/23 20:49 Blood Pressure Position Sitting 08/01/23 20:49 Pulse Oximetry 97 08/01/23 20:49 Oxygen Delivery Method Room Air 08/01/23 20:49 Vital Signs Temperature 97.2 F L 08/01/23 20:49 Pulse Rate 80 08/01/23 20:49 Blood Pressure 138/53 L 08/01/23 20:49 Pulse Oximetry 97 08/01/23 20:49 Oxygen Delivery Method Room Air 08/01/23 20:49 Temperature 97.2 F L 08/01/23 20:49 Pulse Rate 80 08/01/23 20:49 Blood Pressure 138/53 L 08/01/23 20:49 Pulse Oximetry 97 08/01/23 20:49 Oxygen Delivery Method Room Air 08/01/23 20:49 Medical Decision Making MDM Narrative Medical decision making narrative: 83-year-old male returning to the ER tonight by EMS with a similar presentation to about 3 weeks ago when I saw him. He is having progressive gait instability and multiple falls at home. Also some cognitive decline. Fortunately no signs of any serious injuries from his falls. We did repeat head CT which shows no sign of trauma. We suspect that his falls are related to his neuro degenerative disorder and ataxia. Nothing by history or exam to suggest seizure or syncope. EKG shows sinus rhythm and no arrhythmogenic abnormality. CBC, BMP, troponin are normal. TSH and urinalysis are pending at the time of this dictation. CT scan does demonstrate stable hydrocephalus compared to recent CT images. I did discuss with Neurology from [facility], Dr. Juarez. He indicates that the patient was being worked up for hydrocephalus and had a muted response to his lumbar puncture and CSF drainage. The neurologist felt that it is not clear that he would actually benefit from a VIDEO SURVEILLANCE TECHNICIAN shunt. He also had biomarkers suggestive of possible Alzheimer's which could be contributing to his symptoms at what well. They did not feel that he needed emergent VIDEO SURVEILLANCE TECHNICIAN shunt during his last hospitalization. Their plan is to do an outpatient PET scan to look for other signs of Alzheimer's and then consult with Neurosurgery to see if they feel like he would benefit from VIDEO SURVEILLANCE TECHNICIAN shunt. The neurologist will pass the message through the [place] system try to expedite has outpatient workup. Currently his PET scan is scheduled for a few weeks from now and his neuro surgical consultation is scheduled for September 16, 6 weeks from now. [facility] It is clear from the patient's that he is just not steady enough to be at home anymore. She can not care for him and keep him safe. The patient and his agreed that he needs a assisted living or rehab center or detention for additional care. He will be admitted to the hospitalist service, Dr. Padilla accepting. Lab Data Labs: Lab Results 08/01/23 Range/Units 22:00 WBC 10.58 (4.50-11.00) K/uL RBC 3.53 L (4.30-5.90) m/uL Hgb 11.7 L (13.5-17.5) gm/dL Hct 34.9 L (37.0-53.0) % MCV 99 (80-100) fL MCH 33 (26-34) pg MCHC 34 (32-36) gm/dL RDW Coeff of Ramirez 14.4 (11.5-15.5) % Plt Count 179 (140-440) K/uL Neut % (Auto) 90.0 H (42.0-72.0) % Lymph % (Auto) 3.2 L (20-44) % [place] % (Auto) 5.4 (0.0-11.0) % Eos % (Auto) 1.0 (0.0-7.0) % Baso % (Auto) 0.1 (0.0-3.0) % Neut # (Auto) 9.50 H (1.7-7.0) K/uL Lymph # (Auto) 0.30 L (0.90-2.90) K/uL [place] # (Auto) 0.60 (0.00-0.90) K/UL Eos # (Auto) 0.11 (0.00-0.50) K/uL Baso # (Auto) 0.01 (0.00-0.30) K/uL Abs Immat Gran (auto) 0.03 (0.00-0.30) K/uL Imm/Tot Granulo (auto) 0.3 % Sodium 137 (135-149) mmol/L Potassium 4.8 (3.6-5.1) mmol/L Chloride 104 (96-114) mmol/L Carbon Dioxide 24 (20-32) mmol/L Anion Gap 9 (7-15) mEq/L BUN 25 (7-30) mg/dL Creatinine 0.8 (0.5-1.5) mg/dL Estimated Creat Clear 54.15 Estimated GFR 88 ml/min Glucose 103 (60-115) mg/dL Calcium 9.5 (8.4-10.6) mg/dL Troponin I 0.02 (0.01-0.04) ng/mL Imaging Data CT scan - head: Attestation: I have reviewed the pertinent imaging results. Radiologist's impression: IMPRESSION: 1. Stable moderately enlarged ventricular system caliber without significant sulcal crowding of the vertex. Stable [id number] enlargement of the 4th ventricle. 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 Normal pressure hydrocephalus may have a similar appearance in the appropriate clinical setting. 2. No intracranial hemorrhage or midline shift. No acute skull fractures. Chronic encephalomalacia involving the frontal and temporal lobes bilaterally, likely posttraumatic. Stable examination. ECG Data Attestation: I personally reviewed and interpreted this ECG as follows: Interpretation: Normal sinus rhythm with frequent premature ventricular complexes. Rate 81 VT 182. No delta waves. No WPW QRS axis normal axis. No pathologic Q-waves. ST segment/T wave: Nonspecific T-wave flattening V1, V2. No ST segment elevation or depression. QTc: 450 Discharge Plan Discharge Clinical Impression: Falls frequently, Weakness Patient Disposition: Admitted As Observation
--- NOTE | 2023-08-01 21:25 | CT_ITS ---
Patient: NERI LUJAN Facility:?[facility] Patient ID:?[id number] Site Patient ID:?[id number] Site :?[id number] Study:?CT-Head W/O-08/01/2023 9:51:45 PM Ordering Physician:YUMI Final Report: TECHNIQUE: Multiplanar CT examination of the head was performed without the use of intravenous contrast. INDICATION: Frequent falls, evaluate for normal pressure hydrocephalus. COMPARISON: CT head 07/13/2023. MR brain 03/28/2023 FINDINGS: No loss of -white differentiation to suggest recent territorial infarct. Chronic frontal and temporal encephalomalacia bilaterally, likely posttraumatic. 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 No intracranial hemorrhage, abnormal extra-axial fluid collection, hydrocephalus or midline shift. Stable moderately enlarged ventricular system caliber, out of proportion to the generalized cerebral atrophy in the cerebral sulci near the vertex. Bifrontal diameter measures 51 mm, previously 50 mm. There is xnlu-bp-xagxrwki enlargement of the 4th ventricle, grossly unchanged. There is patchy ill-defined hypoattenuation of the periventricular white matter diffusely, consistent with chronic microvascular ischemic changes. Dense atherosclerotic calcifications of the cavernous ICA segments bilaterally. The basal cisterns are patent. The paranasal sinuses and mastoid air cells remain clear. The orbits and calvarium are unremarkable. The cerebellar tonsils are normal position. IMPRESSION: 1. Stable moderately enlarged ventricular system caliber without significant sulcal crowding of the vertex. Stable omgj-qs-qtihzqzs enlargement of the 4th ventricle. 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 Normal pressure hydrocephalus may have a similar appearance in the appropriate clinical setting. 2. No intracranial hemorrhage or midline shift. No acute skull fractures. Chronic encephalomalacia involving the frontal and temporal lobes bilaterally, likely posttraumatic. Stable examination. Please note that all CT scans at this facility use dose modulation, iterative reconstruction, and/or weight-based dosing when appropriate to reduce radiation dose to as low as reasonably achievable. Dictated by Efrain Smith MD @ 08/01/2023 10:05:56 PM Signed by:?Efrain Smith MD @08/01/2023 10:05:56 PM (Electronic Signature)
--- NOTE | 2023-08-01 21:26 | XR_ITS ---
Patient: NERI LUJAN Facility:?[facility] Patient ID:?[id number] Site Patient ID:?[id number]. Site :?[id number] Study:?XRay-Chest 2 VIEWS-08/01/2023 9:53:28 PM Ordering Physician:YUMI Final Report: INDICATION: Falls. TECHNIQUE: Chest 2 views. COMPARISON: None. FINDINGS: Cardiovascular and mediastinum: Heart size and vasculature are normal in caliber and appearance. Lungs and pleural spaces: Slightly increased interstitial markings. No pleural effusions or pneumothorax. Bones and soft tissues: No significant findings. IMPRESSION: Slightly increased interstitial markings, nonspecific may represent a component of interstitial edema. Dictated by Abner Carlson MD @ 08/01/2023 10:16:24 PM Signed by:?Abner Carlson MD @08/01/2023 10:16:24 PM (Electronic Signature)
[2023-08-01 22:05] LABS: Basophils Absolute Auto 0.01 K/uL (0.00-0.30); Basophils Percent Auto 0.1 % (0.0-3.0); Eosinophils Absolute Auto 0.11 K/uL (0.00-0.50); Hematocrit 34.9 % (37.0-53.0); Hemoglobin* 11.7 gm/dL (13.5-17.5); Immature Granulocytes Abs Auto 0.03 K/uL (0.00-0.30); Immature Granulocytes Pct Auto 0.3 %; Lymphocytes Percent Auto 3.2 % (20-44); Mean Corpuscular HGB Conc 34 gm/dL (32-36); Mean Corpuscular Hemoglobin 33 pg (26-34); Mean Corpuscular Volume 99 fL (80-100); Monocytes Percent Auto 5.4 % (0.0-11.0); Platelet Count* 179 K/uL (140-440); RDW Coefficient of Variation % 14.4 % (11.5-15.5); Red Blood Count 3.53 m/uL (4.30-5.90); White Blood Count* 10.58 K/uL (4.50-11.00)
[2023-08-01 22:15] LABS: Slide Review Reflex No
[2023-08-01 22:21] LABS: Chloride* 104 mmol/L (96-114); Potassium* 4.8 mmol/L (3.6-5.1); Sodium* 137 mmol/L (135-149)
[2023-08-01 22:24] LABS: Anion Gap 9 mEq/L (7-15); Blood Urea Nitrogen* 25 mg/dL (7-30); Carbon Dioxide* 24 mmol/L (20-32); Creatinine* 0.8 mg/dL (0.5-1.5); Est. Creatinine Clearance* 54.15; Estimated Glomerular Filt Rate 88 ml/min
[2023-08-01 22:25] LABS: Calcium* 9.5 mg/dL (8.4-10.6); Glucose* 103 mg/dL (60-115)
[2023-08-01 22:37] LABS: Troponin I* 0.02 ng/mL (0.01-0.04)
--- NOTE | 2023-08-01 23:06 | PM.IMHP1 ---
Hospitalist- H&P: HPI History of Present Illness Date Seen: 08/02/23 Chief complaint: fall Narrative: Galileo Marcelino is a 83 year old male who presented to the ED by ambulance after recurrent falls at home. He has had many falls over the past year, two this evening. He is being seen by PCP and Neurology for workup of this with details below. For falls this evening, he denies any preceding palpitations, dizziness, or lightheadedness. He was unable to get up after the 2nd fall, so EMS was called. Nicholas initially declined transfer to hospital, but given recurrent falls and weakness, requested transport to ER. At this point, she does not feel that he is safe at home any further and requests assistance with placement. ER course and findings: - persistently dilated ventricles on head CT - labs baseline, troponin negative, reassuring EKG Nicholas has no concerns for hospitalist team upon admission this evening, but does admit that his falls and weakness have escalated, and that he would benefit from SNF. Histories updated below. Dr. Negron is PCP locally. Notably, Nicholas is being seen at [facility] for his falls and concern for NPH. Copy of most recent neurology visit below. FROM MOST RECENT [facility] APPOINTMENT WITH DR. RODRIGUEZ (07/25/23): IMPRESSION/PLAN: 1. Gait disturbance, apraxia 2. Ventriculomegaly 3. History of intracerebral bleeding 2005 after head trauma 4. Mild cognitive impairment 5. Biomarkers of Alzheimer's disease in spinal fluid I met with the patient and his to follow-up there hospitalization at [facility], on the Neurology Service , discharge July 15, 2023. The patient underwent follow-up MRI scan. The radiologist did not think that the ventriculomegaly was related to hydrocephalus. Spinal fluid was collected with video taping before and after to see if there was an improvement in the gait. In comparing the video recordings, I am not confident that there was a big change. However the nurse the walk the patient after the videotape and after the lumbar puncture indicated that there was substantial improvement in his gait. The patient was not so sure. The patient's son who visited with the patient after the lumbar puncture thought that his cognition had improved significantly. Spinal fluid collected at the time showed positive presence of elevated pTau/a beta 42 ratio. This does not demonstrate Alzheimer's disease conclusively but is suggestive of at least a component of Alzheimer's disease contributing to the cognitive impairment. I think there are components of both hydrocephalus and Alzheimer's disease present. In the end there is mixed data about a potential reversibility and possibility of shunt being helpful to the patient. Think collecting additional data might be helpful with a brain PET scan. If the changes were severe of Alzheimer's disease, I would not recommend a shunt. On the other hand his apraxia of gait and some observe him seeing improvement following the lumbar puncture might speak for it. I think it would be helpful for him to have a neurosurgical opinion about what would be involved regarding ventriculoperitoneal shunt, to help them make a decision about risk benefit they asked about assisted and I think the it would be reasonable to consider that at this point. I will set up neurosurgery appointment, brain PET scan, and then see the patient back after, which can be arranged by phone or video visit if need be. I discussed all this with the patient, his , and his son by phone. Review of Systems Narrative: - No recent travel - no GI symptoms - no recent illness [facility] Medical History (Updated 08/02/23 @ 00:14 by Lissett Padilla MD) Pre-diabetes ?R73.03 - Prediabetes (ICD-10) Cerebral ventriculomegaly ?G93.89 - Other specified disorders of brain (ICD-10) Greater trochanteric bursitis of left hip ?M70.62 - Trochanteric bursitis, left hip (ICD-10) Prostate cancer ?C61 - Malignant neoplasm of prostate (ICD-10) Macrocytic anemia ?D53.9 - Nutritional anemia, unspecified (ICD-10) Cataract (lens) fragments in eye following cataract surgery, left eye ?H59.022 - Cataract (lens) fragments in eye following cataract surgery, left eye (ICD-10) Hearing loss ?H91.90 - Unspecified hearing loss, unspecified ear (ICD-10) Hyperlipidemia ?E78.5 - Hyperlipidemia, unspecified (ICD-10) Essential hypertension ?I10 - Essential (primary) hypertension (ICD-10) Closed head injury ?S09.90XA - Unspecified injury of head, initial encounter (ICD-10) Surgical History (Updated 08/01/23 @ 23:25 by Lissett Padilla MD) H/O inguinal hernia repair ?Z98.890 - Other specified postprocedural states (ICD-10) ?Z87.19 - Personal history of other diseases of the digestive system (ICD-10) Hx of total knee arthroplasty ?Z96.659 - Presence of unspecified artificial knee joint (ICD-10) 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 Requests DNR/DNI status. Ambulates with a walker. 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 Nonsmoker, typically has 1 drink per day. No history of withdrawal. What is your current living situation?: I presently have a place to live Smoking Status: Never smoker How often do you have a drink containing alcohol: 4 or more times a week How many standard drinks containing alcohol do you have on a typical day: 1 or 2 How often do you have six or more drinks on one occasion: Never AUDIT-C Alcohol total score: 4 Non-prescribed substance use: denies use Meds Home Medications and Allergies Home Medications Medication Instructions Recorded Confirmed Type atorvastatin 20 mg tablet 20 mg PO DAILY 09/19/22 08/01/23 History lisinopril 20 mg tablet 20 mg PO DAILY 09/19/22 08/01/23 History trospium 20 mg tablet 20 mg PO Q12H 09/19/22 08/01/23 History losartan 50 mg tablet 50 mg PO DAILY 11/06/22 08/01/23 History multivitamin 1 tab PO DAILY 11/06/22 08/01/23 History sertraline 50 mg tablet 50 mg PO QAM 11/06/22 08/01/23 History Allergies Allergy/AdvReac Type Severity Reaction Status Date / Time No Known Drug Allergies Allergy Verified 01/29/23 14:56 Exam Narrative: Exam Narrative: GEN: Awake and alert, answering questions appropriately HEENT: EOMIs bilaterally, no scleral icterus CV: RRR, No concerning murmurs R: LCTA bilaterally without concerning wheezing, air movement adequate Ab: soft, nontender, + BS x4 Ext: wwp, normal peripheral pulses, no concerning edema Skin: Prominent blanching capillaries on bilateral lower extremities and hands, chronic and unchanged, per patient Neuro: No focal deficits on limited exam, gait not observed, no tremors noted Psych: Appropriate Const: Vital Signs, click to edit/add: Vital Signs - 24 hr 08/01/23 20:49 Temperature 97.2 F L Pulse Rate [Pulse Oximeter] 80 Blood Pressure [Ri ght Upper Arm] 138/53 L Pulse Oximetry 97 Oxygen Delivery Me thod Room Air Hospitalist - H&P: Result Labs Labs: Short CBC 08/01/23 Range/Units 22:00 WBC 10.58 (4.50-11.00) K/uL Hgb 11.7 L (13.5-17.5) gm/dL Hct 34.9 L (37.0-53.0) % Plt Count 179 (140-440) K/uL BMP 08/01/23 22:00 Sodium 137 Potassium 4.8 Chloride 104 Carbon Dioxide 24 BUN 25 Creatinine 0.8 Glucose 103 Calcium 9.5 Cardiac Enzymes 08/01/23 Range/Units 22:00 Troponin I 0.02 (0.01-0.04) ng/mL Assessment and Plan Assessment and plan (1) Cerebral ventriculomegaly: Problem comment: - has been seen by [facility] and had MRI/LP as part of workup for NPH, found to have + biomarker's for Alzheimers - patient and felt that symptoms were improved post LP - during last appt, Neurology did not feel like shunt placement would be helpful, still awaiting appointment with Neurosurgery Status: Acute (2) Weakness: Problem comment: - labs baseline/reassuring, therapies ordered Status: Acute (3) Falls frequently: Status: Acute (4) Prostate cancer: Problem comment: - 1 Stage IIIB (cT3a, cN0, cM0, Grade Group: 4, 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
[2023-08-02] VITALS (7 sets, daily range): BP systolic 118–160; BP diastolic 42–82; PULSE 63–91; RESP 16–20; TEMP 36.3–36.7; O2SAT 95–100; BMI 29.3
[2023-08-02 00:34] LABS: Appearance Urine Clear (Clear); Bilirubin Urine Negative (Negative); Blood Urine Negative (Negative); Color Urine Yellow (Yellow); Glucose Urine Negative (Negative); Ketones Urine Negative (Negative); Leukocyte Esterase Urine Negative (Negative); Nitrite Urine Negative (Negative); Protein Urine 1+ (Negative); Urobilinogen Urine 0.2 (0.2-1.0); pH Urine 7.5 (5.0-8.5)
[2023-08-02 00:41] LABS: Amorphous Sediment Urine Few; Bacteria Urine Few; RBC Urine 0-2 (0-2); Squamous Epithelial Cell Urine Few (None-Few); WBC Urine 0-2 (0-5)
[2023-08-02] MEDS: ACETAMINOPHEN 325 MG TABLET 650 MG PO ×3 (03:16→16:37)
--- NOTE | 2023-08-02 06:56 | PC.NURSE ---
Arrived to floor at 2330 via stretcher. Alert to self, place, and situation. VSS w/ sats >90% on room air. Pt reports possibly twisting left ankle when he fell at home. Left ankle swollen and pt reports pain with movement. Tylenol given and ice placed. A1 with walker and gait belt to bathroom. Pt was unable to walk on left ankle after walking into the bathroom. Used wheelchair to get pt back to bed. Although pt is adamant on walking to the bathroom. Using call light appropriately. ?
[2023-08-02] MEDS: SERTRALINE 50 MG TABLET PO (09:08)
[2023-08-02] MEDS: LOSARTAN POTASSIUM 50 MG TABLET PO (09:08)
[2023-08-02] MEDS: ATORVASTATIN 10 MG TABLET 20 MG PO (09:08)
[2023-08-02] MEDS: SODIUM CHLORIDE 0.9 % (FLUSH) 10 ML SYRINGE 5 ML IVF ×2 (09:09→20:20)
--- NOTE | 2023-08-02 09:19 | XR_ITS ---
Patient: NERI LUJAN Facility:?[facility] Patient ID:?[id number] Site Patient ID:?[id number]. Site :?1940 Study:?XRay-Extremity Left ANKLE 3 VIEWS-08/02/2023 10:18:41 AM Ordering Physician:CECELIA Final Report: Indication: Injury and pain Technique: Left ankle 3 views. Comparison: None Findings: Mildly displaced fracture of the lateral malleolus noted. Chronic ossicles adjacent to the medial malleolus. Small posterior calcaneal spur. Dorsal spurring at the midfoot. Impression: Acute distal fibular fracture. Dictated by Arnel Noyola MD @ 08/02/2023 10:31:28 AM Signed by:?Arnel Noyola MD @08/02/2023 10:31:28 AM (Electronic Signature)
--- NOTE | 2023-08-02 09:19 | US_ITS ---
Patient: NERI LUJAN Facility:?[facility] Patient ID:?[id number] Site Patient ID:?[id number]. Site :?1940 Study:?US-Extremity Left LEV LT-08/02/2023 10:00:40 AM Ordering Physician:SADA BOONE M.D. Final Report: INDICATION: Pain and swelling, left ankle pain COMPARISON: None. TECHNIQUE: Grayscale, color Doppler, and duplex Doppler of the left lower extremity deep and superficial venous systems. FINDINGS: Laterality: Left Examined veins: common femoral, femoral, deep femoral, popliteal, peroneal, posterior tibial greater saphenous The examined veins are patent with normal grayscale appearance and normal compressibility where anatomically feasible. Normal color Doppler flow. Normal venous waveforms on duplex Doppler ultrasound with normal augmentation. The right common femoral vein was sampled for comparison and is normal. IMPRESSION: No deep or superficial venous thrombosis in the left lower extremity. Dictated by Mikki Mccurdy MD @ 08/02/2023 10:10:06 AM Signed by:?Mikki Mccurdy MD @08/02/2023 10:10:06 AM (Electronic Signature)
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
--- NOTE | 2023-08-02 09:49 | PC.NURSE ---
Patient's , Bailey, called for an update. Cartographic Engineer provided update on patient's night & plan of care for the day with an US and XR of EMMA. All of Bailey's questions were answered appropriately and she verbalized understanding. Bailey states she does not feel as if he's safe to come home and she's called one facility to see if they have an open bed but they said no. Bailey requested a call from which was passed on to Dr. Calvillo.
--- NOTE | 2023-08-02 10:34 | XR_ITS ---
Patient: NERI LUJAN Facility:?[facility] Patient ID:?[id number] Site Patient ID:?[id number]. Site :?1940 Study:?XRay-Extremity Left ANKLE-08/02/2023 11:37:51 AM Ordering Physician:PAOLO Final Report: Indication: GRAVITY STRESS VIEW FOR ESPINOZA B FRACTURE Technique: Two portable gravity stress views of the left ankle. Comparison: Earlier today Findings: Mildly displaced distal fibular fracture again noted above the level of the syndesmosis. There is slight widening of the space between the medial malleolus and talar dome which is thought to be related to sequela of prior trauma as there are multiple chronic ossicles adjacent to the tip of the medial malleolus. Vascular calcifications. No osteochondral defect of the talar dome. Impression: Mildly displaced Espinoza B fracture of the distal fibula. 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 No acute tibial fracture. Dictated by Arnel Noyola MD @ 08/02/2023 11:58:05 AM Signed by:?Arnel Noyola MD @08/02/2023 11:58:05 AM (Electronic Signature)
--- NOTE | 2023-08-02 12:16 | PM.ORCN ---
History of Present Illness HPI Time Seen by Provider: 11:50 Date Seen: 08/02/23 Consult date: 08/02/23 Requesting physician: Karyna Calvillo Consult reason: fracture Chief complaint: fall Narrative: Nicholas is a pleasant 83 year old that was admitted to our Hospital post fall in his kitchen. DOI: 08/01/23. Patient reports he fell in his kitchen while using his walker and twisted his ankle. Left ankle images obtained this morning show a minimally displaced distal fibular fracture, Zamora B. Patient reports his pain is well managed with rest, elevation and Tylenol PRN. Associated symptoms include: swelling. Denies: ecchymosis, numbness/tingling distally. Nicholas explains his baseline gait is slightly weak and he uses his walker daily. Resides at home with his , Bailey. PMHx includes: chronic left lower extremity edema, frequent falls, biomarkers for Alzheimer's (per [facility]), bilateral lower extremity weakness and neuropathy and pre-diabetic. Nonsmoker. : Bailey, not present during this visit. [facility] Medical History Pre-diabetes ?R73.03 - Prediabetes (ICD-10) Cerebral ventriculomegaly ?G93.89 - Other specified disorders of brain (ICD-10) Greater trochanteric bursitis of left hip ?M70.62 - Trochanteric bursitis, left hip (ICD-10) Prostate cancer ?C61 - Malignant neoplasm of prostate (ICD-10) Macrocytic anemia ?D53.9 - Nutritional anemia, unspecified (ICD-10) Cataract (lens) fragments in eye following cataract surgery, left eye ?H59.022 - Cataract (lens) fragments in eye following cataract surgery, left eye (ICD-10) Hearing loss ?H91.90 - Unspecified hearing loss, unspecified ear (ICD-10) Hyperlipidemia ?E78.5 - Hyperlipidemia, unspecified (ICD-10) Essential hypertension ?I10 - Essential (primary) hypertension (ICD-10) Closed head injury ?S09.90XA - Unspecified injury of head, initial encounter (ICD-10) Surgical History H/O inguinal hernia repair ?Z98.890 - Other specified postprocedural states (ICD-10) ?Z87.19 - Personal history of other diseases of the digestive system (ICD-10) Hx of total knee arthroplasty ?Z96.659 - Presence of unspecified artificial knee joint (ICD-10) 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 Requests DNR/DNI status. Ambulates with a walker. 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 Nonsmoker, typically has 1 drink per day. No history of withdrawal. What is your current living situation?: I presently have a place to live Problems where you live: no known problems Problems where you live details: n/a In the past 12 months, utilities in danger of being shut off: no In past 12 months, lack of transportation kept you from medical appts, meetings, work, or getting things needed for daily living: no In the past 12 mos, have been you worried that your food would run out before you had money to buy more?: never true In the past 12 mos, the food you bought just didn't last and you didn't have money to buy more?: never true Highest level of school completed/degree received: Doctoral degree Smoking Status: Never smoker How often do you have a drink containing alcohol: 4 or more times a week How many standard drinks containing alcohol do you have on a typical day: 1 or 2 How often do you have six or more drinks on one occasion: Never AUDIT-C Alcohol total score: 4 Non-prescribed substance use: denies use How often does anyone, including family, friends and others, physically hurt you: never How often does anyone, including family, friends and others, insult or talk down to you: never How often does anyone, including family, friends and others, threaten you with harm: never How often does anyone, including family, friends and others, scream or curse at you: never service: No Meds Home Medications and Allergies Home Medications Medication Instructions Recorded Confirmed Type atorvastatin 20 mg tablet 20 mg PO DAILY 09/19/22 08/01/23 History trospium 20 mg tablet 20 mg PO Q12H 09/19/22 08/01/23 History losartan 50 mg tablet 50 mg PO DAILY 11/06/22 08/01/23 History multivitamin 1 tab PO DAILY 11/06/22 08/01/23 History sertraline 50 mg tablet 50 mg PO QAM 11/06/22 08/01/23 History Allergies Allergy/AdvReac Type Severity Reaction Status Date / Time No Known Drug Allergies Allergy Verified 01/29/23 14:56 Ortho Exam Narrative Exam Narrative: Patient is alert and oriented x3. No acute distress. Converses with nonlabored breathing. Presents with Javier wrap around left ankle. Left ankle exam: No open wounds, abrasions nor cutaneous changes. Diffuse left lower extremity edema. Pitting edema 2+ left dorsal foot and left proximal leg, 1+ pitting edema left ankle (Javier wrap helped). Mild-moderate tenderness lateral malleolus. AROM and strength testing deferred. Patient has excessive bilateral foot supination (left greater than right). CMS intact with 2+ DP and PT pulses. [place], warm digits with brisk capillary refill. Sensation confirmed distally. Const Vital Signs, click to edit/add: Vital Signs - 24 hr 08/01/23 20:49 08/02/23 01:23 08/02/23 03:21 Temperature 97.2 F L 98.1 F Pulse Rate [Pulse Oximeter] 80 91 76 Respiratory Rate 16 16 Blood Pressure [Left Arm] 158/77 H Blood Pressure [Right Arm] Blood Pressure [Right Upper Arm] 138/53 L Pulse Oximetry 97 96 95 Oxygen Delivery Method Room Air Room Air Room Air 08/02/23 07:00 08/02/23 07:00 08/02/23 11:00 Temperature 98 F 97.9 F Pulse Rate [Pulse Oximeter] 77 77 76 Respiratory Rate 18 18 18 Blood Pressure [Left Arm] 160/82 H Blood Pressure [Right Arm] 130/42 L Blood Pressure [Right Upper Arm] Pulse Oximetry 96 100 Oxygen Delivery Method Room Air Room Air Documenting provider has reviewed patient's vital signs: yes Results Labs Labs: Laboratory Results - last 48 hr 08/01/23 08/01/23 08/02/23 22:00 23:31 00:00 WBC 10.58 RBC 3.53 L Hgb 11.7 L Hct 34.9 L MCV 99 MCH 33 MCHC 34 RDW Coeff of Ramirez 14.4 Plt Count 179 Neut % (Auto) 90.0 H Lymph % (Auto) 3.2 L [place] % (Auto) 5.4 Eos % (Auto) 1.0 Baso % (Auto) 0.1 Neut # (Auto) 9.50 H Lymph # (Auto) 0.30 L [place] # (Auto) 0.60 Eos # (Auto) 0.11 Baso # (Auto) 0.01 Abs Immat Gran (auto) 0.03 Imm/Tot Granulo (auto) 0.3 Sodium 137 Potassium 4.8 Chloride 104 Carbon Dioxide 24 Anion Gap 9 BUN 25 Creatinine 0.8 Estimated Creat Clear 54.15 Estimated GFR 88 Glucose 103 Calcium 9.5 Troponin I 0.02 TSH 1.840 Urine Color Yellow Urine Appearance Clear Urine pH 7.5 Ur Specific [place] 1.020 Urine Protein 1+ A Urine Glucose (UA) Negative Urine Ketones Negative Urine Blood Negative Urine Nitrite Negative Urine Bilirubin Negative Urine Urobilinogen 0.2 Ur Leukocyte Esterase Negative Urine RBC 0-2 Urine WBC 0-2 Ur Squamous Epith Cells Few Amorphous Sediment Few A Urine Bacteria Few A Lab Acknowledgement Test Added Diagnostic results Ankle/Foot x-ray: image reviewed and other (Left ankle x-rays dated 08/02/23 reviewed which show acute, minimally displaced distal fibular fracture, Zamora B. Minimal medial clear space widening (1-2mm) on gravity stress view. ) Assessment and Plan Assessment and plan (1) Falls frequently: Status: Acute (2) Edema of left lower extremity: Status: Acute (3) Left ankle pain: Status: Acute (4) Weakness: Status: Acute (5) Cerebral ventriculomegaly: Status: Chronic (6) Essential hypertension: Status: Chronic (7) Closed left ankle fracture: Problem comment: Closed treatment of a closed, acute, minimally displaced distal fibular fracture, Zamora. DOI: 08/01/23. Status: Acute Assessment and Plan: Images were reviewed with the patient and Dr. Chin Wiley. This fracture can be treated non-operatively. Patient was placed in a stirrup+posterior slap splint with molding/gentle reduction over distal lateral malleolus. Patient tolerated splint placement well. Keep splint clean and dry. Patient may toe-touch weightbear (approx. 50% weight) while utilizing a walker. PT and OT consults to aid in balance/gait training, core/quad/gluteal strengthening. Pain is well controlled with rest, ice, elevation and Tylenol PRN. May consider small script for Palmer if pain worsens. I suspect his pain will improve with improved stability/control provided by this splint. Patient will follow-up with myself at our Orthopedic Clinic in 1 week, repeat 3-view left ankle images out of splint prior to being seen. All questions were answered. Patient's , Bailey, was not present during this visit. I wrote my name and contact information on the white board for her if she needs to get in touch with myself over the weekend.
--- NOTE | 2023-08-02 13:14 | PC.SOCIAL ---
Addendum entered by LARRY Serrano 08/02/23 16:46: Discharge planning: [facility] is reviewing pt's referral for short-term rehab. Social work to follow-up as needed. Addendum entered by LARRY Serrano 08/02/23 16:03: Discharge planning: emergency service worker sent a referral to [facility] for the pt this afternoon via secure email. Social work to follow-up as needed. Original Note: Discharge planning: emergency service worker spoke with pt's today and updated her on the pt being made inpatient today(08/01) and most likely needing a short-term rehab stay. emergency service worker explained that an Orthopedic provider would be coming to look at pt's fractured ankle today and then he would be seen by PT/OT after that for recommendations. Pt's stated that she would like pt to stay in town for short-term rehab, if it is recommended, because she does not drive anymore. emergency service worker will continue to follow-up as needed.
--- NOTE | 2023-08-02 19:12 | PC.NURSE ---
End of shift [id number]: Pt has been A&O and call light appropriate throughout this shift. He?s been afebrile and VSS. Pivot transfer to W/C then transports to BR or recliner. He is TTWB to LLE d/t non-surgical, displaced distal tibular fracture. Plaster cast placed this afternoon by Ortho PA. Pt tolerated well. He c/o intermittent pain with touch and activity. Ice applied and PRN Tylenol given x2 doses- last given at 1635. LLE US negative for DVT. PIV in right hand SL and C/D/I. Pt transitioned to inpatient status today given his left ankle fracture. He is COMANCHE but hears adequately without hearing aids. Had 2+ edema in left leg and 1+ edema in left ankle prior to cast placement. LLE has been elevated on 2 [address] ice in place. TEDs on RLE in place. Pt refused having SCD?s on during the day. Denies any nausea, dizziness or SOB. SW consulted for discharge planning to SNF for rehab. ?
--- NOTE | 2023-08-02 23:37 | PC.NURSE ---
Shft note: PAtient is alert and oriented with occasional confusion. Uses call light appropriately. Pelvic transfer to . Vitally stable.
[2023-08-03 02:35] VITALS: BP 167/88; PULSE 84; RESP 18; TEMP 36.4; O2SAT 94
--- NOTE | 2023-08-03 06:38 | PC.NURSE ---
End of shift nursing note, care from [id number]: Pt alert and oriented to questions, very pleasant and appreciative to staff. Pt requires assist x1 to pivot transfer to to/from bathroom to remain TTWB to LLE d/t ankle fx. Multiple voids, brief changed for incontinence as well, x1 BM this AM. CMS intact to LLE, swelling present. Pt denies needing offered PRN. Vitals stable, last BP elevated but taken after pt returned from bathroom. Pt has call light within reach and uses appropriately. ?
[2023-08-03 07:00] VITALS: BP 176/83; PULSE 78; RESP 18; TEMP 36.8; O2SAT 94
[2023-08-03] MEDS: ATORVASTATIN 10 MG TABLET 20 MG PO (09:44)
[2023-08-03] MEDS: SERTRALINE 50 MG TABLET PO (09:44)
[2023-08-03] MEDS: LOSARTAN POTASSIUM 50 MG TABLET PO (09:44)
[2023-08-03] MEDS: SODIUM CHLORIDE 0.9 % (FLUSH) 10 ML SYRINGE 5 ML IVF ×2 (09:45→21:30)
[2023-08-03 11:00] VITALS: PULSE 78; RESP 18; TEMP 36.9; O2SAT 94
--- NOTE | 2023-08-03 11:03 | P.IMPN_ITS ---
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 Left lower extremity ultrasound was negative for DVT. Rena Patino from Ortho placed a bulky Galileo Dove splint. This is a non operative fracture and she would like him to follow-up in ortho clinic in about a week's time with imaging. He is toe-touch weight-bearing on that leg. Continue PT and OT. He will need a senior care facility for rehab. Seeking placement. Pain well controlled now that he has a splint. Time Spent With Patient Total time spent: Today I spent 50 minutes rounding on the patient. Greater than 50% included di scussing care with the patient, and later his over the phone, the radiologist, orthopedic PA, our team, reviewing data, updating and managing the care plan. Subjective Time Seen by Provider: 09:20 Date Seen: 08/03/23 Interval history: Nicholas feels well today. He tells me that he slept much better last night. He notices a big difference now that his ankle is in a splint, it is much less painful. He has no complaints today. I gave his , Bailey, an update over the phone around 11:10 a.m. Exam Narrative: Exam Narrative: General: No acute distress. Awake, alert, oriented. No pallor. No jaundice. Oropharynx: Clear. Mucous membranes moist. Cardiovascular: Regular rate and rhythm. No murmurs, gallops, or rubs. Respiratory: Clear to auscultation bilaterally. No wheezes or crackles. Abdomen: Bowel sounds present. Soft, nondistended, nontender. Extremities: Left ankle is splinted. Left lower extremity has 2+ nonpitting edema, right lower extremity is nonedematous. Const: Vital Signs, click to edit/add: Vital Signs - 24 hr 08/02/23 15:00 08/02/23 15:00 08/02/23 19:00 Temperature 98.1 F 97.4 F L Pulse Rate [Pulse Oximeter] 79 63 70 Respiratory Rate 18 20 18 Blood Pressure [Le ft Arm] 129/64 Blood Pressure [Ri ght Arm] 118/53 L Pulse Oximetry 95 97 Oxygen Delivery Me thod Room Air Room Air 08/02/23 23:30 08/02/23 23:30 08/03/23 02:35 Temperature 97.9 F 97.6 F Pulse Rate [Pulse Oximeter] 82 82 84 Respiratory Rate 18 18 18 Blood Pressure [Le ft Arm] 167/88 H Blood Pressure [Ri ght Arm] 129/68 Pulse Oximetry 97 94 Oxygen Delivery Me thod Room Air Room Air 08/03/23 07:00 08/03/23 07:00 Temperature 98.2 F Pulse Rate [Pulse Oximeter] 78 78 Respiratory Rate 18 18 Blood Pressure [Le ft Arm] 176/83 H Blood Pressure [Ri ght Arm] Pulse Oximetry 94 Oxygen Delivery Me thod Room Air Documenting provider has reviewed patient's vital signs: yes
[2023-08-03 15:00] VITALS: BP 162/69; PULSE 78; RESP 18; TEMP 36.9; O2SAT 94
[2023-08-03 19:00] VITALS: BP 151/68; PULSE 72; RESP 18; TEMP 37.1; O2SAT 91
[2023-08-03 23:00] VITALS: BP 157/74; PULSE 81; RESP 18; TEMP 37; O2SAT 93
[2023-08-04 02:07] LABS: Rapid Plasma Reagin (RPR) Non Reactive (Non Reactive)
[2023-08-04 03:00] VITALS: BP 156/73; PULSE 84; RESP 18; TEMP 36.8; O2SAT 96
--- NOTE | 2023-08-04 06:09 | PC.NURSE ---
Shift note: Pt is doing well, alert and oriented. Uses call light appropriately. Pevic transfer to wheelchair and toilet.Vitally stable.
[2023-08-04 07:00] VITALS: PULSE 84; RESP 18
[2023-08-04] MEDS: ATORVASTATIN 10 MG TABLET 20 MG PO (09:04)
[2023-08-04] MEDS: SERTRALINE 50 MG TABLET PO (09:05)
[2023-08-04] MEDS: LOSARTAN POTASSIUM 50 MG TABLET PO (09:05)
[2023-08-04 11:00] VITALS: BP 141/90; PULSE 86; RESP 18; TEMP 36.9; O2SAT 97
--- NOTE | 2023-08-04 11:55 | P.IMPN_ITS ---
Progress Note: A&P Assessment and plan (1) Falls frequently: Status: Acute (2) Edema of left lower extremity: Status: Acute (3) Weakness: Status: Acute (4) Cerebral ventriculomegaly: Status: Chronic (5) Essential hypertension: Status: Chronic (6) Closed left ankle fracture: Problem details: Closed treatment of a closed, acute, minimally displaced distal fibular fracture, Zamora. DOI: 08/01/23. 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 Left lower extremity ultrasound was negative for DVT. Rena Patino from Ortho placed a bulky Galileo Dove splint 08/02/23. Pain well controlled now that he has a splint. This is a non operative fracture and she would like him to follow-up in ortho clinic in about a week's time with imaging. He is toe-touch weight- bearing on that leg. Continue PT and OT. He will need a senior care facility for rehab. Seeking placement. No safe discharge plan at present. Subjective Time Seen by Provider: 07:22 Date Seen: 08/04/23 Interval history: Nicholas feels well and has no complaints. No concerns from staff. Exam Narrative: Exam Narrative: General: No acute distress. Sleeping, arouses easily, oriented. No pallor. No jaundice. Cardiovascular: Regular rate and rhythm. No murmurs, gallops, or rubs. Respiratory: Clear to auscultation bilaterally. No wheezes or crackles. Extremities: Left ankle is splinted. Left lower extremity has 2+ nonpitting edema, right lower extremity is nonedematous. Const: Vital Signs, click to edit/add: Vital Signs - 24 hr 08/03/23 15:00 08/03/23 15:00 08/03/23 19:00 Temperature 98.4 F 98.8 F Pulse Rate [Pulse Oximeter] 78 78 72 Respiratory Rate 18 18 18 Blood Pressure [Le ft Arm] 162/69 H Blood Pressure [Ri ght Arm] 151/68 H Pulse Oximetry 94 91 Oxygen Delivery Me thod Room Air Room Air 08/03/23 23:00 08/04/23 03:00 08/04/23 07:00 Temperature 98.6 F 98.3 F Pulse Rate [Pulse Oximeter] 81 84 84 Respiratory Rate 18 18 18 Blood Pressure [Le ft Arm] 157/74 H Blood Pressure [Ri ght Arm] 156/73 H Pulse Oximetry 93 96 Oxygen Delivery Me thod Room Air Room Air Documenting provider has reviewed patient's vital signs: yes Labs Labs: Laboratory Results - last 24 hr 08/01/23 22:00 RPR Screen Non Reactive
[2023-08-04 15:00] VITALS: BP 132/90; PULSE 71; PULSE 86; RESP 18; TEMP 36.8; O2SAT 96
[2023-08-04 19:00] VITALS: BP 128/57; PULSE 75; RESP 18; TEMP 36.6; O2SAT 91
[2023-08-04 23:00] VITALS: BP 151/71; PULSE 70; RESP 18; TEMP 36.6; O2SAT 93
[2023-08-05 02:30] VITALS: BP 161/89; PULSE 72; RESP 18; TEMP 36.4; O2SAT 97
--- NOTE | 2023-08-05 06:05 | PC.NURSE ---
Shift note: Pt appears to increase in strength compared to previous days. Able help with transfer to wheelchair and to bed. A/O with occasional confusion. Pt had adequate sleep. Vitally stable.
[2023-08-05 07:54] VITALS: BP 177/82; PULSE 72; RESP 16; TEMP 36.6; O2SAT 95
[2023-08-05] MEDS: ATORVASTATIN 10 MG TABLET 20 MG PO (08:53)
[2023-08-05] MEDS: SERTRALINE 50 MG TABLET PO (08:54)
[2023-08-05] MEDS: LOSARTAN POTASSIUM 50 MG TABLET PO (08:54)
[2023-08-05 11:03] VITALS: BP 144/63; PULSE 66; RESP 16; TEMP 36.3; O2SAT 98
--- NOTE | 2023-08-05 11:31 | PM.IMPN1 ---
Progress Note: A&P Assessment and plan (1) Falls frequently: Status: Acute (2) Edema of left lower extremity: Status: Acute (3) Weakness: Status: Acute (4) Cerebral ventriculomegaly: Status: Chronic (5) Essential hypertension: Status: Chronic (6) Closed left ankle fracture: Problem details: Closed treatment of a closed, acute, minimally displaced distal fibular fracture, Zamora. DOI: 08/01/23. 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 Left lower extremity ultrasound was negative for DVT. Rena Patino from Ortho placed a bulky Galileo Dove splint 08/02/23. Pain well controlled now that he has a splint. This is a non operative fracture and she would like him to follow-up in ortho clinic in about a week's time with imaging. He is toe-touch weight-bearing on that leg. Continue PT and OT. He will need a retirement facility for rehab. Seeking placement; SW work here today, [facility] is assessing. No safe discharge plan at present. Subjective Time Seen by Provider: 07:48 Date Seen: 08/05/23 Interval history: Nicholas has no complaints. He is moving a slight bit better, still toe touch weight bearing. Exam Narrative: Exam Narrative: General: No acute distress. Awake, alert, oriented. No pallor. No jaundice. Cardiovascular: Regular rate and rhythm. No murmurs, gallops, or rubs. Respiratory: Clear to auscultation bilaterally. No wheezes or crackles. Extremities: Left ankle is splinted. Left lower extremity has 1+ nonpitting edema, right lower extremity is nonedematous. Const: Vital Signs, click to edit/add: Vital Signs - 24 hr 08/04/23 15:00 08/04/23 15:00 08/04/23 19:00 Temperature 98.2 F 97.9 F Pulse Rate [Pulse Oximeter] 86 71 75 Respiratory Rate 18 18 18 Blood Pressure [Le ft Arm] Blood Pressure [Ri ght Arm] 132/90 H 128/57 L Pulse Oximetry 96 91 Oxygen Delivery Me thod Room Air Room Air 08/04/23 23:00 08/04/23 23:00 08/05/23 02:30 Temperature 97.9 F 97.6 F Pulse Rate [Pulse Oximeter] 70 70 72 Respiratory Rate 18 18 18 Blood Pressure [Le ft Arm] 151/71 H 161/89 H Blood Pressure [Ri ght Arm] Pulse Oximetry 93 97 Oxygen Delivery Me thod Room Air Room Air 08/05/23 07:54 08/05/23 07:54 08/05/23 11:03 Temperature 97.9 F 97.4 F L Pulse Rate [Pulse Oximeter] 72 72 66 Respiratory Rate 16 16 16 Blood Pressure [Le ft Arm] 177/82 H Blood Pressure [Ri ght Arm] 144/63 H Pulse Oximetry 95 98 Oxygen Delivery Me thod Room Air Room Air Documenting provider has reviewed patient's vital signs: yes
--- NOTE | 2023-08-05 12:27 | P.DS_ITS ---
DS: Providers Provider Time Seen by Provider: 08:15 Date Seen: 08/05/23 Date of admission: 08/02/23 10:34 Primary care physician: Ky Negron MD Admitting Clinician: Lissett Aiken MD Consults: 08/02/23 00:15 Consult to Physical Therapy [CONS] Routine Comment: Reason(s) for PT Consult:: Evaluate and Treat Any Restrictions?:: No Restrictions Consult to Projection Welding Machine Operator [CONS] Routine Comment: Reason for Consult:: Discharge Planning Needs 08/02/23 00:18 Consult to Occupational Therapy [CONS] Routine Comment: Reason(s) for OT Consult:: Evaluate and Treat Any Restrictions?:: No Restrictions 08/02/23 10:37 Consult to Physician [CONS] Routine Comment: Consulting Provider: Lamberto Morales Has provider been notified: Yes Attending Physician on discharge: Karyna Calvillo MD Date of Discharge: 08/05/23 DS: Diagnosis Discharge Diagnosis (1) Closed left ankle fracture: Status: Acute Problem details: Closed treatment of a closed, acute, minimally displaced distal fibular fracture, Espinoza. DOI: 08/01/23. (2) Macrocytic anemia: Status: Acute Problem details: - followed as an outpatient, recently normal B12 and MMA levels (baseline 11-12 ) (3) Hyperlipidemia: Status: Acute (4) Essential hypertension: Status: Chronic (5) Falls frequently: Status: Acute (6) Cerebral ventriculomegaly: Status: Chronic DS: Summary Hospital Course Hospital Course: 83-year-old male undergoing an outpatient workup for NPH with falls and weakness who sustained a left lateral malleolus fracture after recent fall. Left lower extremity ultrasound was negative for DVT. Rena Patino from Ortho placed a bulky Galileo Dove splint 08/02/23. Pain well controlled now that he has a splint. This is a non operative fracture and she would like him to follow-up in ortho clinic in about a week's time with imaging. He is toe-touch weight- bearing on that leg. Continue PT and OT at [facility]. Time Spent with Patient Time attestation: Total time spent providing and/or coordinating discharge services: Exam Narrative: Exam Narrative: General: No acute distress. Awake, alert, oriented. No pallor. No jaundice. Cardiovascular: Regular rate and rhythm. No murmurs, gallops, or rubs. Respiratory: Clear to auscultation bilaterally. No wheezes or crackles. Extremities: Left ankle is splinted. Left lower extremity has 1+ nonpitting edema, right lower extremity is nonedematous. Const: Vital Signs, click to edit/add: Vital Signs - 24 hr 08/04/23 15:00 08/04/23 15:00 08/04/23 19:00 Temperature 98.2 F 97.9 F Pulse Rate [Pulse Oximeter] 86 71 75 Respiratory Rate 18 18 18 Blood Pressure [Le ft Arm] Blood Pressure [Ri ght Arm] 132/90 H 128/57 L Pulse Oximetry 96 91 Oxygen Delivery Me thod Room Air Room Air 08/04/23 23:00 08/04/23 23:00 08/05/23 02:30 Temperature 97.9 F 97.6 F Pulse Rate [Pulse Oximeter] 70 70 72 Respiratory Rate 18 18 18 Blood Pressure [Le ft Arm] 151/71 H 161/89 H Blood Pressure [Ri ght Arm] Pulse Oximetry 93 97 Oxygen Delivery Me thod Room Air Room Air 08/05/23 07:54 08/05/23 07:54 08/05/23 11:03 Temperature 97.9 F 97.4 F L Pulse Rate [Pulse Oximeter] 72 72 66 Respiratory Rate 16 16 16 Blood Pressure [Le ft Arm] 177/82 H Blood Pressure [Ri ght Arm] 144/63 H Pulse Oximetry 95 98 Oxygen Delivery Me thod Room Air Room Air Documenting provider has reviewed patient's vital signs: yes DS: Data Data Completed and Pending Completed studies during hospitalization: By 08/01/2023 EKG: Sinus rhythm with frequent premature ventricular complexes. Nonspecific ST and T-wave abnormality. Study: CT-Head W/O-08/01/2023 9:51:45 PM Ordering Physician: COSTA Final Report: TECHNIQUE: Multiplanar CT examination of the head was performed without the use of intravenous contrast. INDICATION: Frequent falls, evaluate for normal pressure hydrocephalus. COMPARISON: CT head 07/13/2023. MR brain 03/28/2023 FINDINGS: No loss of -white differentiation to suggest recent territorial infarct. Chronic frontal and temporal encephalomalacia bilaterally, likely posttraumatic. 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 No intracranial hemorrhage, abnormal extra-axial fluid collection, hydrocephalus or midline shift. Stable moderately enlarged ventricular system caliber, out of proportion to the generalized cerebral atrophy in the cerebral sulci near the vertex. Bifrontal diameter measures 51 mm, previously 50 mm. There is bsfx-go-wpybvyum enlargement of the 4th ventricle, grossly unchanged. There is patchy ill-defined hypoattenuation of the periventricular white matter diffusely, consistent with chronic microvascular ischemic changes. Dense atherosclerotic calcifications of the cavernous ICA segments bilaterally. The basal cisterns are patent. The paranasal sinuses and mastoid air cells remain clear. The orbits and calvarium are unremarkable. The cerebellar tonsils are normal position. IMPRESSION: 1. Stable moderately enlarged ventricular system caliber without significant sulcal crowding of the vertex. Stable khoa-yj-ptvhztaw enlargement of the 4th ventricle. 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 Normal pressure hydrocephalus may have a similar appearance in the appropriate clinical setting. 2. No intracranial hemorrhage or midline shift. No acute skull fractures. Chronic encephalomalacia involving the frontal and temporal lobes bilaterally, likely posttraumatic. Stable examination. Please note that all CT scans at this facility use dose modulation, iterative reconstruction, and/or weight-based dosing when appropriate to reduce radiation dose to as low as reasonably achievable. Dictated by Efrain Smith MD @ 08/01/2023 10:05:56 PM Signed by: Efrain Smith MD @08/01/2023 10:05:56 PM (Electronic Signature) Dictated By: Efrain Smith M.D. Signed By: 08/02/23 0743 DD/ 2205 TD/TT: 08/02/23 0742 Study: XRay-Chest 2 VIEWS-08/01/2023 9:53:28 PM Ordering Physician: COSTA Final Report: INDICATION: Falls. TECHNIQUE: Chest 2 views. COMPARISON: None. FINDINGS: Cardiovascular and mediastinum: Heart size and vasculature are normal in caliber and appearance. Lungs and pleural spaces: Slightly increased interstitial markings. No pleural effusions or pneumothorax. Bones and soft tissues: No significant findings. IMPRESSION: Slightly increased interstitial markings, nonspecific may represent a component of interstitial edema. Dictated by Abner Carlson MD @ 08/01/2023 10:16:24 PM Signed by: Abner Carlson MD @08/01/2023 10:16:24 PM (Electronic Signature) Dictated By: Abner Carlson M.D. Signed By: 08/02/23 0744 DD/ 2216 TD/TT: 08/02/23 0743 Study: XRay-Extremity Left ANKLE 3 VIEWS-08/02/2023 10:18:41 AM Ordering Physician: JANINE Final Report: Indication: Injury and pain Technique: Left ankle 3 views. Comparison: None Findings: Mildly displaced fracture of the lateral malleolus noted. Chronic ossicles adjacent to the medial malleolus. Small posterior calcaneal spur. Dorsal spurring at the midfoot. Impression: Acute distal fibular fracture. Dictated by Arnel Noyola MD @ 08/02/2023 10:31:28 AM Signed by: Arnel Noyola MD @08/02/2023 10:31:28 AM (Electronic Signature) Dictated By: Arnel Noyola M.D. Signed By: 08/02/23 1040 DD/ 1031 TD/TT: 08/02/23 1039 Study: US-Extremity Left LEV LT-08/02/2023 10:00:40 AM Ordering Physician: LISSETT AIKEN M.D. Final Report: INDICATION: Pain and swelling, left ankle pain COMPARISON: None. TECHNIQUE: Grayscale, color Doppler, and duplex Doppler of the left lower extremity deep and superficial venous systems. FINDINGS: Laterality: Left Examined veins: common femoral, femoral, deep femoral, popliteal, peroneal, posterior tibial greater saphenous The examined veins are patent with normal grayscale appearance and normal compressibility where anatomically feasible. Normal color Doppler flow. Normal venous waveforms on duplex Doppler ultrasound with normal augmentation. The right common femoral vein was sampled for comparison and is normal. IMPRESSION: No deep or superficial venous thrombosis in the left lower extremity. Dictated by Mikki Mccurdy MD @ 08/02/2023 10:10:06 AM Signed by: Mikki Mccurdy MD @08/02/2023 10:10:06 AM (Electronic Signature) Dictated By: Mikki Mccurdy M.D. Signed By: 08/02/23 1039 DD/ 1010 TD/TT: 08/02/23 1039 Study: XRay-Extremity Left ANKLE-08/02/2023 11:37:51 AM Ordering Physician: NELLI Final Report: Indication: GRAVITY STRESS VIEW FOR ESPINOZA B FRACTURE Technique: Two portable gravity stress views of the left ankle. Comparison: Earlier today Findings: Mildly displaced distal fibular fracture again noted above the level of the syndesmosis. There is slight widening of the space between the medial malleolus and talar dome which is thought to be related to sequela of prior trauma as there are multiple chronic ossicles adjacent to the tip of the medial malleolus. Vascular calcifications. No osteochondral defect of the talar dome. Impression: Mildly displaced Espinoza B fracture of the distal fibula. 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 No acute tibial fracture. Dictated by Arnel Noyola MD @ 08/02/2023 11:58:05 AM Signed by: Arnel Noyola MD @08/02/2023 11:58:05 AM (Electronic Signature) Dictated By: Arnel Noyola M.D. Signed By: 08/02/23 1254 DD/ 1158 TD/TT: 08/02/23 1253 Discharge Plan Discharge Disposition: [facility] Date of Admission: 08/02/23 10:34 Attending Provider on Discharge: Karyna Calvillo Consulting Providers: Lamberto Morales Primary Care Provider: Ky Negron Condition: Improved Anticipated Discharge Date/Time: 08/05/23 13:30 Discharge Medications: New acetaminophen 325 mg Tablet 650 mg PO Q6H PRNQty: 100 0RF Continued atorvastatin 20 mg tablet 20 mg PO DAILY trospium 20 mg tablet 20 mg PO Q12H multivitamin Tablet 1 tab PO DAILY losartan 50 mg tablet 50 mg PO DAILY sertraline 50 mg tablet 50 mg PO QAM Discharge Orders: Discharge Order (Routine); Ordered 08/05/23 Ordered By: Karyna Calvillo Additional Instructions: F/u with Rena Patino in 5 days. Activity Level: Toe Touch Wt Bearing Discharge Diet: Regular Follow Up Appointments: Ky Negron MD [Primary Care Provider] - Forms: [facility] Info Instructions Admit to: SNF Length of Stay: <30 days Can use facility standing orders?: Yes Code Status: DNR/DNI TEDs: N/A Therapy: Physical Therapy and Occupational Therapy Therapy Orders: Evaluate and Treat Oxygen: No Urinary Catheter: No Orders are good >30 days: No Signature: Karyna Calvillo MD
--- NOTE | 2023-08-05 13:41 | PC.NURSE ---
Discharge: Patient pleasant and cooperative. Patient vitally stable, lungs clear, BS NWL, NO IV. Patient denies pain. Patient 1 assist/walker and also wheelchair. Left leg cast C/D/I. Patient tolerating regular diet and urinating. Patient signed belongings sheet and discharge form, having no further questions. Nurse to Nurse report was given to Marylu at [facility]. Patient left the floor by wheelchair to [facility] at 1334.
== END 2023-08-05 13:34 | DRG 563 ==
LOC: ED 22:52 → MEDSURG 23:12
PROVIDERS: Admitting Provider Family Medicine; Emergency Provider Emergency Medicine; PCP Family Medicine; Visit Provider Family Medicine
DX: S82.892A Other fracture of left lower leg, initial encounter for closed fracture (principal); R73.03 Prediabetes; G93.89 Other specified disorders of brain; C61 Malignant neoplasm of prostate; H91.90 Unspecified hearing loss, unspecified ear; I10 Essential (primary) hypertension; R53.1 Weakness; D53.9 Nutritional anemia, unspecified; Z96.651 Presence of right artificial knee joint; E78.5 Hyperlipidemia, unspecified; Z87.820 Personal history of traumatic brain injury
CPT/HCPCS: 36415; 70450; 71046; 73600; 73610; 80048; 81001; 84443; 84484; 85025; 86592; 87081; 87086; 93005; 93971; 97161; 97165; 97530; 97535; 99284; 99285; A9270; G0378

== ENCOUNTER 2023-08-16 07:56 | Day surgery (SDC) | payer MEDICARE, BC, SELFPAY ==
[2023-08-16] VITALS (16 sets, daily range): BP systolic 127–173; BP diastolic 50–87; PULSE 64–88; RESP 15–20; TEMP 36.4–36.6; O2SAT 90–100; BMI 27.8
[2023-08-16] MEDS: SODIUM CHLORIDE 0.9 % (FLUSH) 10 ML SYRINGE IVF (08:25)
[2023-08-16] MEDS: LACTATED RINGERS 1000 ML 1,000 ML 100 ML IV (08:25)
--- NOTE | 2023-08-16 09:25 | W.PM.H&PU ---
History & Physical Update History & Physical Update H&P Reviewed and patient assessed: No changes noted
--- NOTE | 2023-08-16 09:25 | PM.ORPRC ---
Procedure Note Date of procedure: 08/16/23 Procedure: PREOPERATIVE DIAGNOSES: 1. Left ankle distal fibula fracture (with bimalleolar equivalent) POSTOPERATIVE DIAGNOSES: 1. Left distal fibula fracture (with bimalleolar equivalent) PROCEDURE: 1. Left ankle lateral malleolus open reduction with internal fixation. 2. Intraoperative fluoroscopy <53 minutes (CPT CODE 7600) SURGEON: Chin Wiley MD MOBILE LAB TECHNICIAN: CECI Hodges; An acquisitions assistant was critical for this case to aide in patient positioning, leg manipulation, tissue retraction, closure, and splinting. ANESTHESIA: Spinal plus abductor canal and popliteal nerve blocks IMPLANTS: Arthrex distal fibular locking plate with 2.7 distal locking screws, 3.5 mm proximal locking screws, and a 3.5mm proximal nonlocking screw. TOURNIQUET: 43 minutes at 250 mmHg. INDICATIONS: The patient is a pleasant 83-year-old male who sustained a left ankle injury in the recent past. Workup included x-rays which revealed an unstable ankle fracture. Given these findings, surgery was recommended to stabilize the ankle and allow for anatomic healing. FINDINGS: Closed, displaced lateral malleolus ankle fracture with a bimalleolar equivalent; intact syndesmosis. PROCEDURE: Following a thorough discussion of risks, benefits, and alternatives, consent was obtained and the operative extremity was marked. A regional nerve block was performed by anesthesia staff. The patient was then brought to the operating room, where spinal anesthesia was administered. He was then placed supine on the operating table. 2 g IV Ancef for provided preoperatively for prophylaxis. The left lower extremity was prepped and draped in the appropriate sterile fashion. A surgical time-out was performed confirming patient identity, surgical site, surgical procedure. The operative extremity was elevated and exsanguinated, and the tourniquet inflated to 250 mmHg. A longitudinal incision was made overlying the distal fibula. Sharp incision was carried through skin and subcutaneous tissue. The superficial peroneal nerve was identified in the proximal aspect of the incision was protected throughout the course of the procedure. The fracture was identified, and cleared of interposed periosteum and fracture hematoma. The surgical site was thoroughly irrigated with normal saline. The fracture was reduced and temporarily held with reduction clamps. The appropriate sized distal fibular locking plate was selected and fixed provisionally with a BB tack proximally. Distally the plate was fixed with 2.7 mm unicortical locking screws. Proximally, a 3.5 mm nonlocking cortical screw was placed to bring the plate down to the fibula. Two additional 3.5 mm locking screws were then placed proximally. Anatomic reduction of the fracture, appropriate position of the plate, and appropriate screw lengths were confirmed with fluoroscopic imaging in AP and lateral planes. The syndesmosis was stressed and confirmed to be stable. At this stage, the wound was thoroughly irrigated with normal saline. Deep subcutaneous tissues were closed over the plate with 2-0 Vicryl. The tourniquet was deflated. Total tourniquet time was 43 minutes. Hemostasis achieved with electrocautery and wound was again irrigated with normal saline. Subcutaneous tissues were closed with 3-0 Vicryl followed by 2-0 Stratafix for the subcuticular layer. Dermabond was applied over the incision followed by application of a sterile dressings and a bulky Dove splint. The patient was awoken from anesthesia and transferred to the PACU in stable condition. PLAN: 1. Ice and elevate operative extremity. 2. Keep splint clean and dry. 3. Tylenol and tramadol for pain as needed. 4. Toe touch weight-bearing operative extremity. 5. Discharge to [facility]. 6. Follow up in orthopedic clinic in 10-14 days for splint removal and wound check. -will convert back to Cam boot and advance weight-bearing as tolerated in the boot at that time. 7. Follow-up with Dr. Wiley in the orthopedic clinic 6 weeks postoperatively.
--- NOTE | 2023-08-16 09:30 | XR_ITS ---
Patient: NERI LUJAN Facility:?[facility] Patient ID:?[id number] Site Patient ID:?[id number]. Site :?[id number] Study:?XRay-Extremity Left ANKLE 3 VIEWS-08/16/2023 11:44:51 AM Ordering Physician:LOREN Final Report: Indication: Pain. Left ankle ORIF. Technique: Intraoperative fluoroscopy. Three images saved. Fluoro time: 17 seconds Comparison: None. Findings/Impression: Images show ORIF of a distal fibular fracture with a lateral plate and screws. Dictated by Edil Link MD @ 08/19/2023 6:48:14 AM Signed by:?Edil Link MD @08/19/2023 6:48:14 AM (Electronic Signature)
[2023-08-16] MEDS: MIDAZOLAM HCL 1 MG/ML inj IVP (09:40)
[2023-08-16] MEDS: fentaNYL 100 MCG/2 ML inj IVP (09:40)
--- NOTE | 2023-08-16 10:04 | SUR.PREOP ---
TIME?OUT:?2321 PT/Yaritza SADLER RN/Chris COPELAND CRNA/ Josue KINGSLEY CRNA VERIFICATION?OF?SURGICAL?SITE,?PROCEDURE,?AND?CONSENT OBTAINED?PRIOR?TO?INVASIVE?PROCEDURE.
[2023-08-16] MEDS: CEFAZOLIN 2 GM INJ IVP (10:15)
--- NOTE | 2023-08-16 10:43 | P.NB_ITS ---
Nerve Block Nerve Block Time Seen by Provider: 09:40 Date Seen: 08/16/23 Type of block requested by surgeon for post-operative analgesia: popliteal Time out performed: Yes Verification of patient name: Yes Verification of date of : Yes Site marking: site marked Name of person performing procedure: Shane Beau Continuous monitoring Was continuous monitoring of O2 sat, B/P, bus driver/monitor, recorded every 15 minutes?: Yes Procedure Checklist: sterile prep, needles and gloves Ultrasound guided. Images saved: Yes Medications given in 5ml increments after negative aspiration: Ropivicaine %: 0.5 mL: 15 Needle gauge: 20 Patient tolerated procedure well: Yes Additional comments: Injected in 5mL increments after negative aspiration Block Charges Block Charge (with Pro Fee): Sciatic Nerve Use of Ultrasound Machine for Block: Yes- US Guidance/pain block
--- NOTE | 2023-08-16 10:45 | P.NB_ITS ---
Nerve Block Nerve Block Time Seen by Provider: 09:41 Date Seen: 08/16/23 Type of block requested by surgeon for post-operative analgesia: adductor canal Time out performed: Yes Verification of patient name: Yes Verification of date of : Yes Site marking: site marked Name of person performing procedure: Shane Beau Continuous monitoring Was continuous monitoring of O2 sat, B/P, monitor and storage bin tender, recorded every 15 minutes?: Yes Procedure Checklist: sterile prep, needles and gloves Ultrasound guided. Images saved: Yes Medications given in 5ml increments after negative aspiration: Ropivicaine %: 0.5 mL: 30 Needle gauge: 20 Decadron (mg): 10 Precedex (mcg): 25 Patient tolerated procedure well: Yes Additional comments: Injected in 5mL increments after negative aspiration Block Charges Block Charge (with Pro Fee): Femoral Nerve Use of Ultrasound Machine for Block: Yes- US Guidance/pain block
--- NOTE | 2023-08-16 11:52 | P.ANES_ITS ---
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
== END 2023-08-16 14:48 | disposition home or self-care (01) ==
PROVIDERS: PCP Family Medicine; Visit Provider Orthopaedic Surgery
PROC: (CPT 27792; principal; 2023-08-16 09:30)
DX: S82.62XA Displaced fracture of lateral malleolus of left fibula, initial encounter for closed fracture (principal); G89.18 Other acute postprocedural pain
CPT/HCPCS: 27792; 01400; 01480; 64445; 64447; 73610; 76000; 76942; 99100; C1713; J0665; J0690; J1100; J2250; J2405; J2704; J3010; J3490; J7120